=== PATIENT | female | born 1950 | race Hispanic/Latino ===

== ENCOUNTER 2017-01-13 23:47 | Emergency (ER) | payer MEDICARE, OTHER ==
[2017-01-14] MEDS ORDERED: Aspirin 325 MG TAB ONE (01:46)
[2017-01-14 01:51] LABS: Hematocrit 43.5 % (36.0-47.0); Red Blood Cell (RBC) Count 5.62 mill/uL (4.20-5.40); White Blood Cell (WBC) Count 5.8 thou/uL (4.8-10.8)
[2017-01-14 02:05] LABS: #Basophils 0.1 thou/uL (0.0-0.2); #Eosinphils 0.5 thou/uL (0.0-0.7); #Lymphocytes 1.6 thou/uL (1.20-3.40); #Monocytes 0.4 thou/uL (0.11-0.59); #Neutrophils 3.2 thou/uL (1.40-6.50); %Eosinophils 9.4 % (0.0-10.0); %Lymphocytes 27.8 % (21.0-51.0); %Monocytes 6.9 % (0.0-10.0); Mean Platelet Volume 8.6 fL (7.4-10.4)
[2017-01-14 02:12] LABS: Anion Gap 14 mmol/L (10-20); Carbon Dioxide 23 mmol/L (23-31); Chloride 105 mmol/L (98-107); Troponin I Less than 0.010 ng/mL (< 0.028)
[2017-01-14 02:13] LABS: ALT (SGPT) 25 U/L (8-55); AST (SGOT) 30 U/L (5-34); Alkaline Phosphatase 74 U/L (40-150); BUN (Urea Nitrogen) 22 mg/dL (9.8-20.1); Bilirubin, Total 0.9 mg/dL (0.2-1.2); Calc. Creatinine Clearance 0 mL/min (70-130); Calcium 9.2 mg/dL (7.8-10.44); Estimated GFR-MDRD Greater than 90; Globulin 2.8 g/dL (2.4-3.5); Lipase 14 U/L (8-78); Protein, Total 6.8 g/dL (6.0-8.3)
--- NOTE | 2017-01-14 07:51 | RAD ---
CHEST PA AND LATERAL: Date: 01/14/17 HISTORY: 66-year-old female with chest pain. COMPARISON: 10/22/16. FINDINGS: Heart size is normal. The lungs are clear. IMPRESSION: No acute intrathoracic disease. Stable from prior study. POS: [facility]
--- NOTE | 2017-01-14 08:07 | CT ---
PRELIMINARY REPORT/[facility]/EMERGENCY AFTER HOURS PROCEDURE: EXAM: CT Head Without Intravenous Contrast EXAM DATE/TIME: 01/14/2017 2:12 AM CLINICAL HISTORY: 66 years old, female; Pain; Headache; Headache not specified; Patient HX: HOWARD, cp TECHNIQUE: Axial computed tomography images of the head/brain without intravenous contrast. COMPARISON: No relevant prior studies available. FINDINGS: Brain: Decreased attenuation of the supratentorial white matter is likely secondary to chronic micro vascular ischemia. Chronic lacunar infarcts involving the lentiform nuclei. No hemorrhage. Ventricles: Ventricular and subarachnoid spaces are age appropriate. Bones/joints: Unremarkable. No acute fracture. Soft tissues: Unremarkable. Vasculature: Intracranial vascular calcification. Sinuses: Mild paranasal sinus disease. Mastoid air cells: Unremarkable as visualized. No mastoid effusion. IMPRESSION: No acute intracranial abnormality. Thank you for allowing us to participate in the care of your patient. Dictated and Authenticated by: Pepe Walter MD 01/14/2017 2:32 AM Central Time ([place] \T\ [place]) FINAL REPORT HEAD CT WITHOUT CONTRAST: Date: 01/14/17 COMPARISON: 05/02/16. HISTORY: Headache. FINDINGS: I agree with the preliminary report given by [email or web address]. The imaged paranasal sinuses/mastoid air cells ar e well aerated. No displaced calvarial fracture is noted. There is no intracranial hemorrhage, midli ne shift, mass effect, or ventricular enlargement. IMPRESSION: No acute findings. POS: [facility]
--- NOTE | 2017-01-18 18:14 | EKG ---
Test Reason : Blood Pressure : / mmHG Vent. Rate : 078 BPM Atrial Rate : 078 BPM P-R Int : 134 ms QRS Dur : 084 ms QT Int : 388 ms P-R-T Axes : 059 -04 077 degrees QTc Int : 442 ms Normal sinus rhythm Possible Left atrial enlargement Borderline ECG Confirmed by DORCAS MCKEON M.D. ([id number]), video tape editor SACHI MOLINA ([id number]) on 01/18/2017 6:13:45 PM Referred By: Confirmed By:DORCAS MCKEON M.D.
== END 2017-01-14 03:16 | disposition home or self-care (01) ==
LOC: ERS 23:47
DX: H81.399 Other peripheral vertigo, unspecified ear (principal); E11.9 Type 2 diabetes mellitus without complications; I10 Essential (primary) hypertension
CPT/HCPCS: 36415; 70450; 71020; 80053; 82553; 83690; 83735; 84484; 85025; 93005

== ENCOUNTER 2017-04-05 15:21 | Emergency (ER) | payer MEDICARE ==
[2017-04-05] MEDS ORDERED: Ibuprofen 200 MG TAB ONE (16:13)
[2017-04-05] MEDS ORDERED: Ciprofloxacin HCL/Dexameth Otic Drops 7.5 ml Bottle ONE (16:19)
== END 2017-04-05 16:28 | disposition home or self-care (01) ==
LOC: ERS 15:21
DX: H60.8X3 Other otitis externa, bilateral (principal); E11.9 Type 2 diabetes mellitus without complications; I10 Essential (primary) hypertension
CPT/HCPCS: 99283

== ENCOUNTER 2017-05-12 20:57 | Emergency (ER) | payer MEDICARE ==
[~2017-05-12 20:57] MED LIST: ISOVUE-370 76%-LOCM 1 ML ONE
--- NOTE | 2017-05-12 22:05 | RAD ---
RIGHT RIBS THREE VIEWS: History: Right chest injury. FINDINGS: No displaced fracture or pneumothorax are apparent. POS: [facility]
[2017-05-12] MEDS ORDERED: HYDROcodone/Acetaminophen 5/325 mg Tablet ONE (22:45)
[2017-05-12 22:57] LABS: #Basophils 0.2 thou/uL (0.0-0.2); #Eosinphils 0.5 thou/uL (0.0-0.7); #Lymphocytes 2.1 thou/uL (1.20-3.40); #Monocytes 0.4 thou/uL (0.11-0.59); #Neutrophils 3.3 thou/uL (1.40-6.50); %Basophils 2.3 % (0.0-1.0); %Eosinophils 7.9 % (0.0-10.0); %Lymphocytes 32.8 % (21.0-51.0); %Neutrophils 50.9 % (42.0-75.0); Hemoglobin 13.6 g/dL (12.0-16.0); Mean Corpuscular HGB CONC 31.1 g/dL (32.0-36.0); Mean Corpuscular Hemoglobin 23.9 pg (27.0-31.0); Mean Corpuscular Volume 76.6 fl (81.0-99.0); Platelet Count 99 thou/uL (130-400); RBC Distribution Width 12.9 % (11.5-14.5); Red Blood Cell (RBC) Count 5.72 mill/uL (4.20-5.40); White Blood Cell (WBC) Count 6.5 thou/uL (4.8-10.8)
[2017-05-12 23:14] LABS: Bilirubin Negative (Negative); Blood, Urine Negative (Negative); Clarity CLEAR (Clear); Glucose, Urine (Dipstick) >=1000 mg/dL (Negative); Leukocyte Negative (Negative); Nitrite Negative (Negative); Protein, Urine (Dipstick) Negative (Neg-Trace); Specific Gravity, Urine 1.038 (1.002-1.036); pH, Urine 7.5 (5.0-9.0)
[2017-05-12 23:24] LABS: ALT (SGPT) 20 U/L (8-55); AST (SGOT) 29 U/L (5-34); Alkaline Phosphatase 103 U/L (40-150); Anion Gap 14 mmol/L (10-20); BUN (Urea Nitrogen) 20 mg/dL (9.8-20.1); Bilirubin, Total 0.6 mg/dL (0.2-1.2); Calc. Creatinine Clearance 0 mL/min (70-130); Calcium 9.2 mg/dL (7.8-10.44); Carbon Dioxide 23 mmol/L (23-31); Chloride 106 mmol/L (98-107); Estimated GFR-MDRD 85; Globulin 2.8 g/dL (2.4-3.5); Glucose 209 mg/dL (80-115); Lipase 43 U/L (8-78); Potassium 3.9 mmol/L (3.5-5.1); Protein, Total 6.8 g/dL (6.0-8.3); Sodium 139 mmol/L (136-145)
--- NOTE | 2017-05-12 23:55 | CT ---
CT CHEST WITH IV CONTRAST CT ABDOMEN AND PELVIS WITH IV CONTRAST CT THORACIC SPINE NONCONTRAST CT LUMBAR SPINE NONCONTRAST: Date: 05-12-17 Performed on emergency basis at 2341 hours. History: Fall. Chest injury. Back injury. Abdomen injury. FINDINGS: Mild scarring is present at the lung bases. No pneumothorax, pleural fluid, or mediastinal adenopathy . No rib fractures are apparent. Calcified granulomata within the chest and abdomen are consistent with healed granulomatous disease. The liver, spleen, kidneys, adrenal glands, and pancreas have a normal CT appearance. Small hiatal he rnia is apparent. No enlarged lymph nodes or free fluid. Urinary bladder is decompressed. Degenerative changes are present throughout the thoracolumbar spine. Vertebral body heights and align ment are maintained. No acute fracture or dislocation. IMPRESSION: 1. No acute traumatic injury is demonstrated. POS: [facility]
== END 2017-05-13 01:12 | disposition home or self-care (01) ==
LOC: ERS 20:57
DX: S20.211A Contusion of right front wall of thorax, initial encounter (principal); E11.9 Type 2 diabetes mellitus without complications; I10 Essential (primary) hypertension; W19.XXXA Unspecified fall, initial encounter; Y92.512 Supermarket, store or market as the place of occurrence of the external cause
CPT/HCPCS: 36415; 71260; 74177; 80053; 81003; 83690; 85025

== ENCOUNTER 2017-05-18 18:25 | Emergency (ER) | payer MEDICARE | END 2017-05-18 19:48 | disposition home or self-care (01) | LOC: ERS 18:25 | DX: L03.011 Cellulitis of right finger (principal); E11.9 Type 2 diabetes mellitus without complications; I10 Essential (primary) hypertension | CPT/HCPCS: 10060 ==

== ENCOUNTER 2017-06-15 17:28 | Emergency (ER) | payer MEDICARE ==
[2017-06-15] MEDS ORDERED: Proparacaine 0.5% Opth 15 ML BOT ONE (19:44)
--- NOTE | 2017-06-15 20:08 | CT ---
CT OF THE BRAIN WITHOUT CONTRAST: Indication: Acute onset visual changes with blurry vision. Patient is a diabetic and ran out of [facility]. Comparison: 01-14-17 FINDINGS: No acute infarct, hemorrhage, or hydrocephalus is present. Small lacunar infarcts involving the globu s pallidus bilaterally are stable. No acute infarct, hemorrhage, or hydrocephalus is present. Skull a nd extracranial soft tissues are unremarkable. IMPRESSION: No acute intracranial abnormality. Examination is not appreciably changed from the prior study,. POS: [facility]
[2017-06-15 20:47] LABS: Anion Gap 12 mmol/L (10-20); BUN (Urea Nitrogen) 17 mg/dL (9.8-20.1); Calc. Creatinine Clearance 0 mL/min (70-130); Calcium 9.4 mg/dL (7.8-10.44); Carbon Dioxide 24 mmol/L (23-31); Chloride 106 mmol/L (98-107); Estimated GFR-MDRD 76; Glucose 260 mg/dL (80-115); Potassium 3.9 mmol/L (3.5-5.1); Sodium 138 mmol/L (136-145)
== END 2017-06-15 20:58 | disposition home or self-care (01) ==
LOC: ERS 17:28
DX: E11.65 Type 2 diabetes mellitus with hyperglycemia (principal); I10 Essential (primary) hypertension; Z79.84 Long term (current) use of oral hypoglycemic drugs
CPT/HCPCS: 36415; 36416; 70450; 80048

== ENCOUNTER 2018-02-28 23:08 | Emergency (ER) | payer MEDICARE ==
[2018-02-28] MEDS ORDERED: Acetaminophen 500 MG TAB ONE (23:35)
--- NOTE | 2018-02-28 23:47 | RAD ---
LEFT KNEE: 02/28/18 Four views. HISTORY: Injury. FINDINGS: There are mild to moderate degenerative changes at the left knee. There is chondrocalcinosis and mild spurring. No evidence of joint effusion. No fracture or acute abnormality. IMPRESSION: Mild to moderate degenerative changes of the left knee. POS: [facility]
== END 2018-02-28 23:56 | disposition home or self-care (01) ==
LOC: ERS 23:08
DX: S80.02XA Contusion of left knee, initial encounter (principal); E11.9 Type 2 diabetes mellitus without complications; I10 Essential (primary) hypertension; W01.198A Fall on same level from slipping, tripping and stumbling with subsequent striking against other object, initial encounter

== ENCOUNTER 2019-09-05 00:52 | Emergency (ER) | payer MEDICARE, SELFPAY ==
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
== END 2019-09-05 03:08 | disposition home or self-care (01) ==
LOC: ERS 00:52
DX: S00.83XA Contusion of other part of head, initial encounter (principal); S20.219A Contusion of unspecified front wall of thorax, initial encounter; K02.9 Dental caries, unspecified; K03.81 Cracked tooth; E11.9 Type 2 diabetes mellitus without complications; I10 Essential (primary) hypertension; Y04.8XXA Assault by other bodily force, initial encounter
CPT/HCPCS: 71045

== ENCOUNTER 2020-07-06 08:22 | Observation (INO) | payer MEDICARE ==
[2020-07-06 09:41] LABS: #Eosinphils 0.6 thou/uL (0.0-0.7); #Lymphocytes 1.2 thou/uL (1.20-3.40); #Monocytes 0.3 thou/uL (0.11-0.59); #Neutrophils 3.3 thou/uL (1.40-6.50); %Basophils 0.1 % (0.0-1.0); %Eosinophils 11.5 % (0.0-10.0); %Lymphocytes 22.5 % (21.0-51.0); %Monocytes 5.2 % (0.0-10.0); %Neutrophils 60.8 % (42.0-75.0); Hemoglobin 12.7 g/dL (12.0-16.0); Mean Corpuscular HGB CONC 31.3 g/dL (32.0-36.0); Mean Corpuscular Hemoglobin 24.1 pg (27.0-31.0); Mean Platelet Volume 12.9 fL (7.4-10.4); Platelet Count 82 thou/uL (130-400); RBC Distribution Width 12.7 % (11.5-14.5); Red Blood Cell (RBC) Count 5.28 mill/uL (4.20-5.40); White Blood Cell (WBC) Count 5.4 thou/uL (4.8-10.8)
[2020-07-06 09:50] LABS: ALT (SGPT) 14 U/L (8-55); AST (SGOT) 21 U/L (5-34); Albumin 3.8 g/dL (3.4-4.8); Alkaline Phosphatase 87 U/L (40-110); Anion Gap 12 mmol/L (10-20); BUN (Urea Nitrogen) 15 mg/dL (9.8-20.1); Bilirubin, Total 0.5 mg/dL (0.2-1.2); Calc. Creatinine Clearance 0 mL/min (70-130); Calcium 8.7 mg/dL (7.8-10.44); Carbon Dioxide 23 mmol/L (23-31); Chloride 107 mmol/L (98-107); Globulin 2.6 g/dL (2.4-3.5); Glucose 271 mg/dL (80-115); Potassium 3.8 mmol/L (3.5-5.1); Protein, Total 6.4 g/dL (5.8-8.1); Sodium 138 mmol/L (136-145)
[2020-07-06] MEDS ORDERED: Labetalol HCl 100 MG/20 ML VIAL ONE (10:16)
[2020-07-06] MEDS ORDERED: Bisacodyl 10 MG SUPP PR PRN (10:22)
[2020-07-06] MEDS ORDERED: Acetaminophen 325 MG TAB PO PRN (10:22)
[2020-07-06] MEDS ORDERED: HumaLOG 300 UNITS/3 ML VIAL SC PRN ×2 (10:22)
[2020-07-06] MEDS ORDERED: Ondansetron PF 4 MG/2 ML Vial IVP PRN (10:22)
[2020-07-06] MEDS ORDERED: Sodium Chloride 0.9% 1,000 ML IV SCH (10:22)
[2020-07-06] MEDS ORDERED: Guaifenesin DM 100-10/5 ML UDCUP PO PRN (10:22)
[2020-07-06] MEDS ORDERED: Dextrose 50% Abboject 50 ML SYRINGE SLOW IVP PRN (10:22)
[2020-07-06] MEDS ORDERED: Calcium Carbonate 500 MG ChewTAB PO PRN (10:22)
[2020-07-06] MEDS ORDERED: Dextrose 5% in Water 1,000 ML IV PRN (10:22)
[2020-07-06] MEDS ORDERED: Nitroglycerin 0.4 MG TAB (25 Tab Bottle) SL PRN (10:22)
[2020-07-06] MEDS ORDERED: Senokot S 8.6-50 MG TAB PO PRN (10:22)
[2020-07-06 10:50] LABS: Hemoglobin A1c 9.2 % (4.0-6.0)
[2020-07-06 11:09] LABS: Troponin I Less than 0.010 ng/mL (< 0.028)
[2020-07-06] MEDS ORDERED: Doxycycline 100 MG CAP PO SCH (11:15)
[2020-07-06 11:33] LABS: Bacteria/HPF None Seen HPF (None Seen); Bilirubin Negative (Negative); Blood, Urine Negative (Negative); Clarity Clear (Clear); Glucose, Urine (Dipstick) Greater than 1000 mg/dL (Negative); Ketone, Urine Negative (Negative); Leukocyte 250 Leu/uL (Negative); Nitrite Negative (Negative); Protein, Urine (Dipstick) Negative (Neg-Trace); RBC/HPF 0-3 HPF (0-3); Specific Gravity, Urine 1.024 (1.002-1.036); Urobilinogen Normal mg/dL (Less than 2); WBC/HPF 0-3 HPF (0-3)
[2020-07-06 14:04] LABS: Troponin I Less than 0.010 ng/mL (< 0.028)
[2020-07-06 14:51] VITALS: BMI 22.2
[2020-07-06] MEDS: Aspirin Chewable 81 MG TAB PO SCH ×2 (16:13→16:34)
[2020-07-06] MEDS ORDERED: Simvastatin 10 MG TAB PO SCH (21:00)
[2020-07-06] MEDS: Metoprolol Tartrate 25 MG TAB PO SCH (21:47)
[2020-07-06] MEDS: Famotidine 20 MG TAB PO SCH (21:47)
[2020-07-06] MEDS: Doxycycline 100 MG CAP PO SCH (21:47)
[2020-07-06 21:59] LABS: SARS-CoV-2 PCR by NAA Not Detected (NotDetected)
[2020-07-07 05:32] LABS: #Eosinphils 0.8 thou/uL (0.0-0.7); #Lymphocytes 1.7 thou/uL (1.20-3.40); #Monocytes 0.3 thou/uL (0.11-0.59); #Neutrophils 2.8 thou/uL (1.40-6.50); %Basophils 0.5 % (0.0-1.0); %Eosinophils 13.8 % (0.0-10.0); %Lymphocytes 29.9 % (21.0-51.0); %Monocytes 5.3 % (0.0-10.0); %Neutrophils 50.5 % (42.0-75.0); Hemoglobin 11.7 g/dL (12.0-16.0); Mean Corpuscular HGB CONC 30.8 g/dL (32.0-36.0); Mean Corpuscular Hemoglobin 23.7 pg (27.0-31.0); Mean Corpuscular Volume 76.8 fL (78.0-98.0); Mean Platelet Volume 11.7 fL (7.4-10.4); Platelet Count 88 thou/uL (130-400); RBC Distribution Width 12.5 % (11.5-14.5); Red Blood Cell (RBC) Count 4.94 mill/uL (4.20-5.40); White Blood Cell (WBC) Count 5.6 thou/uL (4.8-10.8)
[2020-07-07 05:43] LABS: Anion Gap 11 mmol/L (10-20); BUN (Urea Nitrogen) 16 mg/dL (9.8-20.1); Calc. Creatinine Clearance 69 mL/min (70-130); Calcium 8.4 mg/dL (7.8-10.44); Carbon Dioxide 23 mmol/L (23-31); Cardiac Risk 3.5 (Less than 4.5); Chloride 109 mmol/L (98-107); Cholesterol 163 mg/dl (< 200 Desired); Glucose 160 mg/dL (80-115); HDL Cholesterol 47 mg/dL (>60 Neg Risk); LDL Cholesterol, Calculated 97 mg/dL; Potassium 3.6 mmol/L (3.5-5.1); Sodium 139 mmol/L (136-145); Triglycerides 94 mg/dL (Less than 150)
[2020-07-07 08:03] VITALS: TEMP 98
[2020-07-07] MEDS ORDERED: Enoxaparin Sodium 40 MG/0.4 ML SYRINGE SC SCH (09:00)
[2020-07-07] MEDS ORDERED: Aspirin Chewable 81 MG TAB PO SCH (09:00)
[2020-07-07] MEDS ORDERED: Lisinopril 10 MG TAB PO SCH (09:00)
[2020-07-07] MEDS: Doxycycline 100 MG CAP PO SCH (09:25)
[2020-07-07] MEDS: Metoprolol Tartrate 25 MG TAB PO SCH (09:26)
[2020-07-07] MEDS: Famotidine 20 MG TAB PO SCH (09:34)
[2020-07-07 12:01] VITALS: BP 147/60
== END 2020-07-07 14:00 | disposition home or self-care (01) ==
LOC: ERS 08:22 → ERHOLD 10:18 → 2SE 14:26
PROVIDERS: ADMIT Internal Medicine; ATTEND Internal Medicine
DX: G45.9 Transient cerebral ischemic attack, unspecified (principal); I10 Essential (primary) hypertension; E11.9 Type 2 diabetes mellitus without complications; E78.5 Hyperlipidemia, unspecified; Z20.822 Contact with and (suspected) exposure to COVID-19
CPT/HCPCS: 70450; 70551; 71045; 80048; 80053; 80061; 82962 ×2; 83036; 84484 ×2; 85025 ×2; 93005; 93306; 94640 ×3; 96374; 97116; 97139 ×3; 99285; U0003; U0005; 36415; 36416; 81003; 81015; 87635; G0378; J1815; J7620

== ENCOUNTER 2020-08-17 10:29 | Emergency (ER) | payer MEDICARE | END 2020-08-17 11:35 | disposition home or self-care (01) | LOC: ERS 10:29 | DX: J18.9 Pneumonia, unspecified organism (principal); E11.9 Type 2 diabetes mellitus without complications; I10 Essential (primary) hypertension | CPT/HCPCS: 71045 ==

== ENCOUNTER 2020-08-21 11:25 | Emergency (ER) | payer MEDICARE ==
[2020-08-21 14:05] LABS: #Eosinphils 0.2 thou/uL (0.0-0.7); #Lymphocytes 2.2 thou/uL (1.20-3.40); #Monocytes 0.4 thou/uL (0.11-0.59); #Neutrophils 3.6 thou/uL (1.40-6.50); %Basophils 0.7 % (0.0-1.0); %Eosinophils 3.4 % (0.0-10.0); %Lymphocytes 34.2 % (21.0-51.0); %Monocytes 6.1 % (0.0-10.0); %Neutrophils 55.6 % (42.0-75.0); Hemoglobin 13.2 g/dL (12.0-16.0); Mean Corpuscular HGB CONC 32.1 g/dL (32.0-36.0); Mean Corpuscular Hemoglobin 24.6 pg (27.0-31.0); Mean Corpuscular Volume 76.7 fL (78.0-98.0); Mean Platelet Volume 12.7 fL (7.4-10.4); Platelet Count 93 thou/uL (130-400); RBC Distribution Width 12.9 % (11.5-14.5); Red Blood Cell (RBC) Count 5.35 mill/uL (4.20-5.40); White Blood Cell (WBC) Count 6.5 thou/uL (4.8-10.8)
[2020-08-21 14:13] LABS: Bilirubin Negative (Negative); Blood, Urine Trace (Negative); Glucose, Urine (Dipstick) >=1000 mg/dL (Negative); Ketone, Urine Negative (Negative); Leukocyte Small (Negative); Nitrite Negative (Negative); Protein, Urine (Dipstick) Negative (Neg-Trace); Specific Gravity, Urine 1.025 (1.005-1.030); Urobilinogen 0.2 mg/dL (Less than 2)
[2020-08-21 14:17] LABS: ALT (SGPT) 27 U/L (8-55); AST (SGOT) 33 U/L (5-34); Albumin 4.1 g/dL (3.4-4.8); Alkaline Phosphatase 85 U/L (40-110); Anion Gap 13 mmol/L (10-20); BUN (Urea Nitrogen) 21 mg/dL (9.8-20.1); Bilirubin, Total 0.9 mg/dL (0.2-1.2); Calc. Creatinine Clearance 0 mL/min (70-130); Calcium 9.1 mg/dL (7.8-10.44); Carbon Dioxide 25 mmol/L (23-31); Chloride 104 mmol/L (98-107); Globulin 2.7 g/dL (2.4-3.5); Glucose 188 mg/dL (80-115); Lipase 21 U/L (8-78); Potassium 3.5 mmol/L (3.5-5.1); Protein, Total 6.8 g/dL (5.8-8.1); Sodium 138 mmol/L (136-145)
[2020-08-21 14:18] LABS: Hypochromia SLIGHT = 6-15 cells (100X) (0-5/hpf); Large Platelets SLIGHT; MDiff Complete? YES; Microcytosis SLIGHT = 6-15 cells (100X) (0-5/hpf); Platelet Morphology Comment Appears Decreased; Polychromasia SLIGHT = 2-3 cells (100X) (0-2/hpf); Target Cells SLIGHT = 2-5 cells (100X) (0-1/hpf); Tear Drops SLIGHT = 2-5 cells (100X) (0-1/hpf)
[2020-08-21 14:20] LABS: Bacteria/HPF None Seen HPF (None Seen); WBC/HPF 21-50 HPF (0-3)
[2020-08-21 14:25] LABS: Clarity Cloudy (Clear)
== END 2020-08-21 15:18 | disposition home or self-care (01) ==
LOC: ERS 11:25
DX: N39.0 Urinary tract infection, site not specified (principal); R42 Dizziness and giddiness; H91.92 Unspecified hearing loss, left ear; E11.9 Type 2 diabetes mellitus without complications; I10 Essential (primary) hypertension
CPT/HCPCS: 36415; 70450; 71045; 80053; 81003; 81015; 83605; 83690; 84484; 85025; 87077; 87086; 93005

== ENCOUNTER 2020-12-01 23:48 | Emergency (ER) | payer MEDICARE ==
[2020-12-02 10:27] LABS: ALT (SGPT) 22 U/L (8-55); AST (SGOT) 27 U/L (5-34); Alkaline Phosphatase 93 U/L (40-110); Anion Gap 12 mmol/L (10-20); BUN (Urea Nitrogen) 33 mg/dL (9.8-20.1); Bilirubin, Total 0.4 mg/dL (0.2-1.2); Calc. Creatinine Clearance 0 mL/min (70-130); Calcium 9.4 mg/dL (7.8-10.44); Carbon Dioxide 25 mmol/L (23-31); Chloride 108 mmol/L (98-107); Globulin 2.7 g/dL (2.4-3.5); Protein, Total 6.7 g/dL (5.8-8.1); Sodium 141 mmol/L (136-145)
[2020-12-02 10:38] LABS: Hemoglobin 13.3 g/dL (12.0-16.0); Mean Corpuscular HGB CONC 32.2 g/dL (32.0-36.0); Mean Corpuscular Hemoglobin 24.5 pg (27.0-31.0); Mean Corpuscular Volume 76.3 fL (78.0-98.0); RBC Distribution Width 12.3 % (11.5-14.5); Red Blood Cell (RBC) Count 5.42 mill/uL (4.20-5.40); White Blood Cell (WBC) Count 6.9 thou/uL (4.8-10.8)
[2020-12-02 10:39] LABS: Mean Platelet Volume 12.6 fL (7.4-10.4)
[2020-12-02 10:46] LABS: %Neutrophils 47.5 % (42.0-75.0); Platelet Count 97 thou/uL (130-400)
[2020-12-02 10:47] LABS: #Neutrophils 3.3 thou/uL (1.40-6.50); %Basophils 2.8 % (0.0-1.0); %Eosinophils 14.1 % (0.0-10.0); %Lymphocytes 28.5 % (21.0-51.0)
[2020-12-02 10:48] LABS: #Basophils 0.2 thou/uL (0.0-0.2); #Monocytes 0.5 thou/uL (0.11-0.59)
[2020-12-04 11:23] LABS: Glucose 205 mg/dL (80-115)
== END 2020-12-02 06:45 | disposition home or self-care (01) ==
LOC: ERS 23:48
DX: R53.1 Weakness (principal); R42 Dizziness and giddiness
CPT/HCPCS: 70450; 74018; 80053; 83880; 84484; 85025

== ENCOUNTER 2021-03-28 18:17 | Emergency (ER) | payer MEDICARE ==
[2021-03-29 13:39] LABS: SARS-CoV-2 PCR by NAA Not Detected (NotDetected)
== END 2021-03-28 19:18 | disposition home or self-care (01) ==
LOC: ERS 18:17
DX: R05.9 Cough, unspecified (principal); R51.9 Headache, unspecified; Z20.822 Contact with and (suspected) exposure to COVID-19; I10 Essential (primary) hypertension; E11.9 Type 2 diabetes mellitus without complications; Z79.84 Long term (current) use of oral hypoglycemic drugs
CPT/HCPCS: 99284; U0003; U0005

== ENCOUNTER 2021-04-07 10:58 | Emergency (ER) | payer MEDICARE ==
[2021-04-07 11:55] LABS: ALT (SGPT) 17 U/L (8-55); AST (SGOT) 26 U/L (5-34); Alkaline Phosphatase 68 U/L (40-110); Anion Gap 16 mmol/L (10-20); BUN (Urea Nitrogen) 22 mg/dL (9.8-20.1); Calc. Creatinine Clearance 0 mL/min (70-130); Carbon Dioxide 22 mmol/L (23-31); Chloride 107 mmol/L (98-107); Globulin 2.6 g/dL (2.4-3.5); Glucose 128 mg/dL (80-115); Potassium 3.7 mmol/L (3.5-5.1); Protein, Total 6.6 g/dL (5.8-8.1); Sodium 141 mmol/L (136-145)
[2021-04-07 12:05] LABS: #Basophils 0.1 thou/uL (0.0-0.2); #Eosinphils 0.4 thou/uL (0.0-0.7); #Lymphocytes 1.1 thou/uL (1.20-3.40); #Monocytes 0.4 thou/uL (0.11-0.59); #Neutrophils 3.3 thou/uL (1.40-6.50); %Basophils 2.1 % (0.0-1.0); %Eosinophils 7.5 % (0.0-10.0); %Lymphocytes 20.2 % (21.0-51.0); %Monocytes 7.4 % (0.0-10.0); %Neutrophils 62.8 % (42.0-75.0); Hemoglobin 12.8 g/dL (12.0-16.0); Mean Corpuscular HGB CONC 32.1 g/dL (32.0-36.0); Mean Corpuscular Hemoglobin 24.6 pg (27.0-31.0); Mean Corpuscular Volume 76.8 fL (78.0-98.0); RBC Distribution Width 12.5 % (11.5-14.5); Red Blood Cell (RBC) Count 5.19 mill/uL (4.20-5.40); White Blood Cell (WBC) Count 5.3 thou/uL (4.8-10.8)
[2021-04-07 12:08] LABS: Hypochromia SLIGHT = 6-15 cells (100X) (0-5/hpf); MDiff Complete? YES; Mean Platelet Volume 12.6 fL (7.4-10.4); Microcytosis SLIGHT = 6-15 cells (100X) (0-5/hpf); Ovalocytes SLIGHT = 2-5 cells (100X) (0-1/hpf); Platelet Count 74 thou/uL (130-400); Platelet Morphology Comment Appears Decreased; Target Cells SLIGHT = 2-5 cells (100X) (0-1/hpf)
[2021-04-07 12:20] LABS: Bilirubin Negative (Negative); Blood, Urine Negative (Negative); Glucose, Urine (Dipstick) >=1000 mg/dL (Negative); Ketone, Urine 15 mg/dL (Negative); Leukocyte Negative (Negative); Nitrite Negative (Negative); Protein, Urine (Dipstick) Negative (Neg-Trace); Urobilinogen 0.2 mg/dL (Less than 2); pH, Urine 5.5 (5.0-9.0)
[2021-04-07 12:31] LABS: Clarity Hazy (Clear)
[2021-04-07 12:32] LABS: Specific Gravity, Urine 1.027 (1.002-1.036)
[2021-04-07 13:05] LABS: RBC/HPF None Seen HPF (0-3); Squamous Epithelial 0-3 HPF (0-3); WBC/HPF 0-3 HPF (0-3)
[2021-04-07] MEDS ORDERED: Morphine 4 MG/ML VIAL ONE (13:33)
== END 2021-04-07 16:10 | disposition home or self-care (01) ==
LOC: ERS 10:58
DX: K46.9 Unspecified abdominal hernia without obstruction or gangrene (principal); M54.50 Low back pain, unspecified; R07.9 Chest pain, unspecified; I10 Essential (primary) hypertension; E11.9 Type 2 diabetes mellitus without complications
CPT/HCPCS: 36415; 71045; 72131; 80053; 81003; 84484; 85025; 93005; 96372; J2270

== ENCOUNTER 2021-04-21 22:42 | Inpatient (IN) | payer MEDICARE ==
[2021-04-21] MEDS ORDERED: Aspirin Chewable 81 MG TAB ONE (23:05)
[2021-04-21 23:12] LABS: #Eosinphils 0.3 thou/uL (0.0-0.7); #Lymphocytes 1.2 thou/uL (1.20-3.40); #Monocytes 0.4 thou/uL (0.11-0.59); #Neutrophils 4.3 thou/uL (1.40-6.50); %Basophils 0.5 % (0.0-1.0); %Eosinophils 5.5 % (0.0-10.0); %Lymphocytes 18.7 % (21.0-51.0); %Monocytes 5.9 % (0.0-10.0); %Neutrophils 69.4 % (42.0-75.0); Hemoglobin 13.3 g/dL (12.0-16.0); Mean Corpuscular HGB CONC 31.8 g/dL (32.0-36.0); Mean Corpuscular Volume 75.6 fL (78.0-98.0); Mean Platelet Volume 11.8 fL (7.4-10.4); Platelet Count 103 thou/uL (130-400); RBC Distribution Width 12.9 % (11.5-14.5); Red Blood Cell (RBC) Count 5.55 mill/uL (4.20-5.40); White Blood Cell (WBC) Count 6.2 thou/uL (4.8-10.8)
[2021-04-21 23:32] LABS: ALT (SGPT) 27 U/L (8-55); AST (SGOT) 35 U/L (5-34); Albumin 4.4 g/dL (3.4-4.8); Alkaline Phosphatase 90 U/L (40-110); Anion Gap 15 mmol/L (10-20); BUN (Urea Nitrogen) 18 mg/dL (9.8-20.1); Bilirubin, Total 0.7 mg/dL (0.2-1.2); Calc. Creatinine Clearance 0 mL/min (70-130); Calcium 9.4 mg/dL (7.8-10.44); Carbon Dioxide 22 mmol/L (23-31); Chloride 106 mmol/L (98-107); Globulin 3.1 g/dL (2.4-3.5); Glucose 194 mg/dL (80-115); Potassium 4.1 mmol/L (3.5-5.1); Protein, Total 7.5 g/dL (5.8-8.1); Sodium 139 mmol/L (136-145)
[2021-04-22] MEDS ORDERED: Ondansetron PF 4 MG/2 ML Vial IVP PRN (02:11)
[2021-04-22] MEDS ORDERED: Nitroglycerin 0.4 MG TAB (25 Tab Bottle) SL PRN (02:11)
[2021-04-22] MEDS ORDERED: Acetaminophen 325 MG TAB PO PRN (02:11)
[2021-04-22 02:38] LABS: Troponin I Less than 0.010 ng/mL (< 0.028)
[2021-04-22 04:56] LABS: #Basophils 0.1 thou/uL (0.0-0.2); #Eosinphils 0.5 thou/uL (0.0-0.7); #Lymphocytes 1.4 thou/uL (1.20-3.40); #Monocytes 0.4 thou/uL (0.11-0.59); #Neutrophils 3.1 thou/uL (1.40-6.50); %Basophils 1.1 % (0.0-1.0); %Eosinophils 8.9 % (0.0-10.0); %Lymphocytes 25.9 % (21.0-51.0); %Monocytes 7.5 % (0.0-10.0); %Neutrophils 56.5 % (42.0-75.0); Hemoglobin 12.1 g/dL (12.0-16.0); Mean Corpuscular HGB CONC 31.6 g/dL (32.0-36.0); Mean Corpuscular Hemoglobin 24.3 pg (27.0-31.0); Mean Corpuscular Volume 76.9 fL (78.0-98.0); Mean Platelet Volume 12.2 fL (7.4-10.4); Platelet Count 95 thou/uL (130-400); RBC Distribution Width 12.8 % (11.5-14.5); Red Blood Cell (RBC) Count 4.96 mill/uL (4.20-5.40); White Blood Cell (WBC) Count 5.5 thou/uL (4.8-10.8)
[2021-04-22 05:19] LABS: Hemoglobin A1c 10.2 % (4.0-6.0)
[2021-04-22 05:23] LABS: Anion Gap 13 mmol/L (10-20); BUN (Urea Nitrogen) 20 mg/dL (9.8-20.1); Calc. Creatinine Clearance 0 mL/min (70-130); Calcium 9.1 mg/dL (7.8-10.44); Carbon Dioxide 22 mmol/L (23-31); Chloride 107 mmol/L (98-107); Cholesterol 205 mg/dl (< 200 Desired); Glucose 272 mg/dL (80-115); HDL Cholesterol 51 mg/dL (>60 Neg Risk); LDL Cholesterol, Calculated 132 mg/dL; Potassium 3.9 mmol/L (3.5-5.1); Sodium 138 mmol/L (136-145); Triglycerides 112 mg/dL (Less than 150)
[2021-04-22 05:26] LABS: Troponin I Less than 0.010 ng/mL (< 0.028)
[2021-04-22] MEDS ORDERED: HumaLOG 300 UNITS/3 ML VIAL SC PRN (05:37)
[2021-04-22] MEDS ORDERED: Dextrose 50% Abboject 50 ML SYRINGE SLOW IVP PRN (05:37)
[2021-04-22] MEDS ORDERED: Dextrose 5% in Water 1,000 ML IV PRN (05:37)
[2021-04-22] MEDS ORDERED: Aspirin Chewable 81 MG TAB ONE (08:27)
[2021-04-22] MEDS: Aspirin Chewable 81 MG TAB PO SCH (08:37)
[2021-04-22] MEDS ORDERED: Enoxaparin Sodium 40 MG/0.4 ML SYRINGE SC SCH (09:00)
[2021-04-22] MEDS ORDERED: hydrALAZINE 20 MG/ML VIAL SLOW IVP PRN (09:59)
[2021-04-22] MEDS: Lantus 1000 UNITS/10 ML VIAL SC SCH (10:11)
[2021-04-22] MEDS: Carvedilol 3.125 MG TAB PO SCH ×2 (10:11→17:21)
[2021-04-22 10:12] VITALS: BMI 26.3
[2021-04-22 15:29] LABS: SARS-CoV-2 PCR by NAA Not Detected (NotDetected)
[2021-04-22] MEDS: HumaLOG 300 UNITS/3 ML VIAL SC PRN (17:26)
[2021-04-22] MEDS: Atorvastatin Calcium 40 MG TAB PO SCH (20:12)
[2021-04-23 05:14] LABS: #Basophils 0.1 thou/uL (0.0-0.2); #Eosinphils 0.8 thou/uL (0.0-0.7); #Lymphocytes 1.6 thou/uL (1.20-3.40); #Monocytes 0.5 thou/uL (0.11-0.59); %Basophils 1.1 % (0.0-1.0); %Eosinophils 13.4 % (0.0-10.0); %Lymphocytes 27.1 % (21.0-51.0); %Monocytes 8.4 % (0.0-10.0); %Neutrophils 49.9 % (42.0-75.0); Hemoglobin 12.7 g/dL (12.0-16.0); Mean Corpuscular HGB CONC 31.7 g/dL (32.0-36.0); Mean Corpuscular Hemoglobin 24.2 pg (27.0-31.0); Mean Corpuscular Volume 76.2 fL (78.0-98.0); Mean Platelet Volume 11.8 fL (7.4-10.4); Platelet Count 101 thou/uL (130-400); RBC Distribution Width 12.8 % (11.5-14.5); Red Blood Cell (RBC) Count 5.23 mill/uL (4.20-5.40); White Blood Cell (WBC) Count 5.9 thou/uL (4.8-10.8)
[2021-04-23 05:32] LABS: Anion Gap 11 mmol/L (10-20); BUN (Urea Nitrogen) 26 mg/dL (9.8-20.1); Calc. Creatinine Clearance 73 mL/min (70-130); Calcium 9.4 mg/dL (7.8-10.44); Carbon Dioxide 24 mmol/L (23-31); Chloride 107 mmol/L (98-107); Glucose 189 mg/dL (80-115); Potassium 3.9 mmol/L (3.5-5.1); Sodium 138 mmol/L (136-145)
[2021-04-23] MEDS: HumaLOG 300 UNITS/3 ML VIAL SC PRN ×2 (05:54→18:08)
[2021-04-23] MEDS ORDERED: ADENOSINE 60 MG/20 ML VIAL ONE (08:43)
[2021-04-23] MEDS ORDERED: Carvedilol 3.125 MG TAB PO SCH (11:00)
[2021-04-23] MEDS: Carvedilol 3.125 MG TAB PO SCH ×2 (11:13→18:08)
[2021-04-23] MEDS: Aspirin Chewable 81 MG TAB PO SCH (11:15)
[2021-04-23 12:35] LABS: Amphetamine Not Detected (NotDetected); Barbiturates Screen Not Detected (NotDetected); Benzodiazepine Screen Not Detected (NotDetected); Cocaine Metabolite Screen Not Detected (NotDetected); Methadone Not Detected (NotDetected); Methamphetamine Not Detected (NotDetected); Opiate Screen Not Detected (NotDetected); Oxycodone Screen Not Detected (NotDetected); Phencyclidine (PCP) Not Detected (NotDetected); THC/Cannabinoid Screen Not Detected (NotDetected); Tricyclic Screen Not Detected (NotDetected)
[2021-04-23] MEDS: Lantus 1000 UNITS/10 ML VIAL SC SCH (13:28)
[2021-04-23] MEDS ORDERED: hydrALAZINE 25 MG TAB PO PRN (13:55)
[2021-04-23] MEDS ORDERED: hydrOXYzine 25 MG TAB PO PRN (14:05)
[2021-04-23] MEDS: Gabapentin 100 MG CAP PO SCH (20:16)
[2021-04-23] MEDS: Atorvastatin Calcium 40 MG TAB PO SCH (20:16)
[2021-04-24 05:17] LABS: #Eosinphils 0.8 thou/uL (0.0-0.7); #Monocytes 0.5 thou/uL (0.11-0.59); #Neutrophils 2.2 thou/uL (1.40-6.50); %Basophils 0.3 % (0.0-1.0); %Eosinophils 14.6 % (0.0-10.0); %Lymphocytes 35.8 % (21.0-51.0); %Monocytes 8.4 % (0.0-10.0); %Neutrophils 40.8 % (42.0-75.0); Hemoglobin 12.2 g/dL (12.0-16.0); Mean Corpuscular HGB CONC 32.7 g/dL (32.0-36.0); Mean Corpuscular Hemoglobin 24.9 pg (27.0-31.0); Mean Corpuscular Volume 76.1 fL (78.0-98.0); Mean Platelet Volume 11.9 fL (7.4-10.4); Platelet Count 94 thou/uL (130-400); RBC Distribution Width 12.7 % (11.5-14.5); Red Blood Cell (RBC) Count 4.89 mill/uL (4.20-5.40); White Blood Cell (WBC) Count 5.5 thou/uL (4.8-10.8)
[2021-04-24 05:37] LABS: Anion Gap 13 mmol/L (10-20); BUN (Urea Nitrogen) 24 mg/dL (9.8-20.1); Calc. Creatinine Clearance 65 mL/min (70-130); Carbon Dioxide 24 mmol/L (23-31); Chloride 105 mmol/L (98-107); Glucose 182 mg/dL (80-115); Potassium 3.7 mmol/L (3.5-5.1); Sodium 138 mmol/L (136-145)
[2021-04-24] MEDS: HumaLOG 300 UNITS/3 ML VIAL SC PRN ×3 (06:17→16:51)
[2021-04-24] MEDS: Lantus 1000 UNITS/10 ML VIAL SC SCH (08:55)
[2021-04-24] MEDS: Carvedilol 3.125 MG TAB PO SCH ×2 (08:55→16:51)
[2021-04-24] MEDS: Aspirin Chewable 81 MG TAB PO SCH (08:55)
[2021-04-24] MEDS: metFORMIN 850 MG TAB PO SCH (16:51)
[2021-04-24] MEDS: Gabapentin 100 MG CAP PO SCH (20:43)
[2021-04-24] MEDS: Atorvastatin Calcium 40 MG TAB PO SCH (20:44)
[2021-04-25] MEDS: Aspirin Chewable 81 MG TAB PO SCH (09:19)
[2021-04-25] MEDS: Carvedilol 3.125 MG TAB PO SCH (09:20)
[2021-04-25] MEDS: metFORMIN 850 MG TAB PO SCH (09:20)
[2021-04-25] MEDS: HumaLOG 300 UNITS/3 ML VIAL SC PRN (12:40)
[2021-04-25 12:54] VITALS: BP 164/77; TEMP 97.2
== END 2021-04-25 13:44 | disposition home or self-care (01) | DRG 313 ==
LOC: ERS 22:42 → ERHOLD 04-22 00:37 → 2NO 04-22 09:07 → OBSVTOIN 04-24 16:34
PROVIDERS: ADMIT Internal Medicine; ATTEND Internal Medicine
DX: R07.89 Other chest pain (principal); Z20.822 Contact with and (suspected) exposure to COVID-19; I25.10 Atherosclerotic heart disease of native coronary artery without angina pectoris; I10 Essential (primary) hypertension; E78.5 Hyperlipidemia, unspecified; D69.6 Thrombocytopenia, unspecified; E11.65 Type 2 diabetes mellitus with hyperglycemia; R42 Dizziness and giddiness; Z28.21 Immunization not carried out because of patient refusal; Z79.899 Other long term (current) drug therapy; Z79.82 Long term (current) use of aspirin; Z98.51 Tubal ligation status; Z82.49 Family history of ischemic heart disease and other diseases of the circulatory system; Z91.14 Patient's other noncompliance with medication regimen
CPT/HCPCS: 36415; 36416; 71045; 78452; 80048; 80053; 80061; 80306; 83036; 83690; 83880; 84484; 85025; 85379; 93005; 93017; 96374; 96375; A9500; G0378; J0153; J0360; J1815; J2405; U0003; U0005

== ENCOUNTER 2021-05-07 16:01 | Emergency (ER) | payer MEDICARE ==
[2021-05-07 16:51] LABS: #Basophils 0.1 thou/uL (0.0-0.2); #Eosinphils 0.8 thou/uL (0.0-0.7); #Lymphocytes 1.6 thou/uL (1.20-3.40); #Monocytes 0.5 thou/uL (0.11-0.59); #Neutrophils 3.2 thou/uL (1.40-6.50); %Eosinophils 12.8 % (0.0-10.0); %Lymphocytes 26.7 % (21.0-51.0); %Monocytes 7.5 % (0.0-10.0); %Neutrophils 51.9 % (42.0-75.0); Hemoglobin 12.1 g/dL (12.0-16.0); Mean Corpuscular HGB CONC 31.1 g/dL (32.0-36.0); Mean Corpuscular Hemoglobin 24.1 pg (27.0-31.0); Mean Corpuscular Volume 77.7 fL (78.0-98.0); Mean Platelet Volume 11.1 fL (7.4-10.4); Platelet Count 71 thou/uL (130-400); RBC Distribution Width 12.4 % (11.5-14.5); Red Blood Cell (RBC) Count 5.02 mill/uL (4.20-5.40); White Blood Cell (WBC) Count 6.1 thou/uL (4.8-10.8)
[2021-05-07 17:19] LABS: ALT (SGPT) 23 U/L (8-55); AST (SGOT) 30 U/L (5-34); Albumin 4.1 g/dL (3.4-4.8); Alkaline Phosphatase 76 U/L (40-110); Anion Gap 14 mmol/L (10-20); BUN (Urea Nitrogen) 21 mg/dL (9.8-20.1); Calc. Creatinine Clearance 0 mL/min (70-130); Carbon Dioxide 22 mmol/L (23-31); Chloride 109 mmol/L (98-107); Globulin 2.5 g/dL (2.4-3.5); Glucose 184 mg/dL (80-115); Potassium 3.3 mmol/L (3.5-5.1); Protein, Total 6.6 g/dL (5.8-8.1); Sodium 142 mmol/L (136-145)
[2021-05-07 17:25] LABS: Bacteria/HPF 1+ HPF (None Seen); Bilirubin Negative (Negative); Blood, Urine Negative (Negative); Clarity Clear (Clear); Glucose, Urine (Dipstick) Greater than 1000 mg/dL (Negative); Ketone, Urine Negative (Negative); Leukocyte 75 Leu/uL (Negative); Nitrite Negative (Negative); Protein, Urine (Dipstick) 10 mg/dL (Neg-Trace); RBC/HPF 0-3 HPF (0-3); Specific Gravity, Urine 1.032 (1.002-1.036); Urobilinogen Normal mg/dL (Less than 2); pH, Urine 5.5 (5.0-9.0)
[2021-05-07] MEDS ORDERED: Cephalexin 250 MG CAP ONE (18:12)
[2021-05-07] MEDS ORDERED: Potassium Chloride 20 MEQ TAB ONE (18:12)
[2021-05-07] MEDS ORDERED: Cephalexin 250 MG CAP PO SCH (18:15)
[2021-05-07] MEDS ORDERED: Potassium Chloride 20 MEQ TAB PO SCH (18:15)
[2021-05-07 19:49] LABS: Troponin I Less than 0.010 ng/mL (< 0.028)
[2021-05-07 21:53] LABS: SARS-CoV-2 PCR by NAA Not Detected (NotDetected)
== END 2021-05-07 21:45 | disposition home or self-care (01) ==
LOC: ERS 16:01
DX: N39.0 Urinary tract infection, site not specified (principal); E87.6 Hypokalemia; Z20.822 Contact with and (suspected) exposure to COVID-19; E11.9 Type 2 diabetes mellitus without complications; I10 Essential (primary) hypertension
CPT/HCPCS: 80053; 84484; 85025; 87086; 87804 ×2; 93005; U0003; U0005; 36415; 81003; 81015

== ENCOUNTER 2021-07-06 21:11 | Observation (INO) | payer MEDICARE ==
[2021-07-06 22:09] LABS: Bilirubin Negative (Negative); Blood, Urine Negative (Negative); Clarity Turbid (Clear); Glucose, Urine (Dipstick) Greater than 1000 mg/dL (Negative); Ketone, Urine Negative (Negative); Leukocyte 500 Leu/uL (Negative); Nitrite Negative (Negative); Protein, Urine (Dipstick) Negative (Neg-Trace); RBC/HPF 0-3 HPF (0-3); Specific Gravity, Urine 1.015 (1.002-1.036); Urobilinogen Normal mg/dL (Less than 2); pH, Urine 5.5 (5.0-9.0)
[2021-07-06 22:11] LABS: Bacteria/HPF 1+ HPF (None Seen)
[2021-07-06] MEDS ORDERED: Ondansetron PF 4 MG/2 ML Vial ONE (22:24)
[2021-07-06] MEDS ORDERED: Ketorolac Tromethamine 30 MG/ML VIAL ONE (22:24)
[2021-07-06 22:28] LABS: ALT (SGPT) 21 U/L (8-55); AST (SGOT) 31 U/L (5-34); Albumin 4.1 g/dL (3.4-4.8); Alkaline Phosphatase 105 U/L (40-110); Anion Gap 13 mmol/L (10-20); BUN (Urea Nitrogen) 19 mg/dL (9.8-20.1); Bilirubin, Total 0.6 mg/dL (0.2-1.2); Calc. Creatinine Clearance 0 mL/min (70-130); Calcium 8.8 mg/dL (7.8-10.44); Carbon Dioxide 22 mmol/L (23-31); Chloride 109 mmol/L (98-107); Globulin 2.6 g/dL (2.4-3.5); Glucose 163 mg/dL (83-110); Potassium 3.9 mmol/L (3.5-5.1); Protein, Total 6.7 g/dL (5.8-8.1); Sodium 140 mmol/L (136-145)
[2021-07-06 22:35] LABS: Band 1 % (5-11); Eosinophils 24 % (0-10); Hemoglobin 12.4 g/dL (12.0-16.0); Lymphocytes 31 % (21-51); MDiff Complete? YES; Mean Corpuscular HGB CONC 31.4 g/dL (32.0-36.0); Mean Corpuscular Hemoglobin 25.1 pg (27.0-31.0); Mean Corpuscular Volume 79.7 fL (78.0-98.0); Mean Platelet Volume 8.8 fL (7.4-10.4); Monocytes 2 % (0-10); Neutrophil 42 % (42-75); Platelet Count 75 thou/uL (130-400); Platelet Morphology Comment Appears Decreased; RBC Distribution Width 12.6 % (11.5-14.5); Red Blood Cell (RBC) Count 4.95 mill/uL (4.20-5.40); White Blood Cell (WBC) Count 8.5 thou/uL (4.8-10.8)
[2021-07-06 23:32] LABS: SARS-CoV-2 NAA Rapid Test Not Detected (NotDetected)
[2021-07-06] MEDS ORDERED: cefTRIAXone\\ROCEPHIN 1 GM VIAL ONE (23:55)
[2021-07-06] MEDS ORDERED: Acetaminophen 500 MG TAB ONE (23:55)
[2021-07-07] MEDS ORDERED: HYDROcodone/Acetaminophen 5/325 mg Tablet PO PRN (02:27)
[2021-07-07] MEDS ORDERED: Dextrose 50% Abboject 50 ML SYRINGE SLOW IVP PRN (02:27)
[2021-07-07] MEDS ORDERED: Ondansetron PF 4 MG/2 ML Vial IVP PRN (02:27)
[2021-07-07] MEDS ORDERED: Dextrose 5% in Water 1,000 ML IV PRN (02:27)
[2021-07-07] MEDS ORDERED: Bisacodyl 5 MG TAB PO PRN (02:27)
[2021-07-07] MEDS ORDERED: Acetaminophen 325 MG TAB PO PRN (02:27)
[2021-07-07] MEDS ORDERED: HumaLOG 300 UNITS/3 ML VIAL SC PRN ×2 (02:27)
[2021-07-07] MEDS ORDERED: Zolpidem Tartrate 5 MG TAB PO PRN (02:27)
[2021-07-07] MEDS ORDERED: hydrALAZINE 20 MG/ML VIAL SLOW IVP PRN (02:29)
[2021-07-07] MEDS ORDERED: GUAIFENESIN SF SOLN 200 MG/10 ML UDCUP PO PRN (02:29)
[2021-07-07] MEDS ORDERED: Morphine 2 MG/ML VIAL SLOW IVP PRN (02:29)
[2021-07-07 03:41] VITALS: BMI 36.0
[2021-07-07] MEDS: Sodium Chloride 0.9% 1,000 ML IV SCH ×2 (04:24→15:37)
[2021-07-07 06:26] LABS: Hemoglobin 11.1 g/dL (12.0-16.0); Mean Corpuscular HGB CONC 31.9 g/dL (32.0-36.0); Mean Corpuscular Hemoglobin 25.5 pg (27.0-31.0); Mean Platelet Volume 8.8 fL (7.4-10.4); Platelet Count 62 thou/uL (130-400); RBC Distribution Width 12.4 % (11.5-14.5); Red Blood Cell (RBC) Count 4.34 mill/uL (4.20-5.40); White Blood Cell (WBC) Count 6.3 thou/uL (4.8-10.8)
[2021-07-07 06:31] LABS: ALT (SGPT) 18 U/L (8-55); AST (SGOT) 27 U/L (5-34); Albumin 3.5 g/dL (3.4-4.8); Alkaline Phosphatase 87 U/L (40-110); Anion Gap 9 mmol/L (10-20); BUN (Urea Nitrogen) 19 mg/dL (9.8-20.1); Bilirubin, Total 0.6 mg/dL (0.2-1.2); Calc. Creatinine Clearance 73 mL/min (70-130); Calcium 8.1 mg/dL (7.8-10.44); Carbon Dioxide 21 mmol/L (23-31); Chloride 112 mmol/L (98-107); Glucose 186 mg/dL (83-110); Magnesium 1.5 mg/dL (1.6-2.6); Potassium 3.5 mmol/L (3.5-5.1); Protein, Total 5.5 g/dL (5.8-8.1); Sodium 138 mmol/L (136-145)
[2021-07-07 06:38] LABS: Band 2 % (5-11); Eosinophils 28 % (0-10); Lymphocytes 26 % (21-51); MDiff Complete? YES; Monocytes 3 % (0-10); Neutrophil 41 % (42-75); Platelet Morphology Comment Appears Decreased
[2021-07-07] MEDS ORDERED: Potassium Chloride 20 MEQ TAB PO SCH (07:45)
[2021-07-07] MEDS ORDERED: Magnesium 2 GM/50 ML(in water) 2 GM in Premix Bag 1 BAG IVPB SCH (08:00)
[2021-07-07] MEDS: Famotidine 20 MG TAB PO SCH (08:30)
[2021-07-07] MEDS: Zinc Sulfate 220 MG CAP PO SCH (08:30)
[2021-07-07] MEDS: metFORMIN 850 MG TAB PO SCH ×2 (08:30→16:54)
[2021-07-07] MEDS: Carvedilol 6.25 MG TAB PO SCH ×2 (08:31→16:54)
[2021-07-07] MEDS: Aspirin Chewable 81 MG TAB PO SCH (08:31)
[2021-07-07] MEDS: Atorvastatin Calcium 40 MG TAB PO SCH (20:32)
[2021-07-08] MEDS: Sodium Chloride 0.9% 1,000 ML IV SCH ×2 (04:23→17:23)
[2021-07-08 06:26] LABS: Hemoglobin 10.8 g/dL (12.0-16.0); Mean Corpuscular HGB CONC 31.8 g/dL (32.0-36.0); Mean Corpuscular Hemoglobin 25.6 pg (27.0-31.0); Mean Corpuscular Volume 80.5 fL (78.0-98.0); Mean Platelet Volume 9.2 fL (7.4-10.4); Platelet Count 58 thou/uL (130-400); RBC Distribution Width 12.6 % (11.5-14.5); Red Blood Cell (RBC) Count 4.24 mill/uL (4.20-5.40); White Blood Cell (WBC) Count 5.4 thou/uL (4.8-10.8)
[2021-07-08 06:48] LABS: Anion Gap 11 mmol/L (10-20); BUN (Urea Nitrogen) 11 mg/dL (9.8-20.1); Calc. Creatinine Clearance 73 mL/min (70-130); Calcium 8.4 mg/dL (7.8-10.44); Carbon Dioxide 20 mmol/L (23-31); Chloride 112 mmol/L (98-107); Glucose 131 mg/dL (83-110); Sodium 139 mmol/L (136-145)
[2021-07-08 06:53] LABS: Band 2 % (5-11); Eosinophils 26 % (0-10); Hypochromia SLIGHT = 6-15 cells (100X) (0-5/hpf); Lymphocytes 31 % (21-51); MDiff Complete? YES; Monocytes 7 % (0-10); Neutrophil 29 % (42-75); Platelet Morphology Comment Appears Decreased; Reactive Lymphocytes 5 % (0-10)
[2021-07-08] MEDS: Carvedilol 6.25 MG TAB PO SCH ×2 (07:58→17:23)
[2021-07-08] MEDS: metFORMIN 850 MG TAB PO SCH ×2 (07:58→17:23)
[2021-07-08] MEDS: Famotidine 20 MG TAB PO SCH (08:00)
[2021-07-08] MEDS: Aspirin Chewable 81 MG TAB PO SCH (08:00)
[2021-07-08] MEDS: Zinc Sulfate 220 MG CAP PO SCH (08:00)
[2021-07-08] MEDS ORDERED: Amlodipine 5 MG TAB PO SCH (14:30)
[2021-07-08] MEDS: Atorvastatin Calcium 40 MG TAB PO SCH (20:17)
[2021-07-09] MEDS ORDERED: Haloperidol Lactate 5 MG/ML VIAL IM PRN (00:15)
[2021-07-09] MEDS ORDERED: Aspirin 325 MG TAB PO SCH (02:56)
[2021-07-09] MEDS ORDERED: Nitroglycerin 0.4 MG TAB (25 Tab Bottle) SL PRN (02:56)
[2021-07-09 03:00] LABS: Anion Gap 15 mmol/L (10-20); BUN (Urea Nitrogen) 12 mg/dL (9.8-20.1); Calc. Creatinine Clearance 69 mL/min (70-130); Calcium 9.2 mg/dL (7.8-10.44); Carbon Dioxide 20 mmol/L (23-31); Chloride 108 mmol/L (98-107); Glucose 105 mg/dL (83-110); Magnesium 1.6 mg/dL (1.6-2.6); Potassium 3.9 mmol/L (3.5-5.1); Sodium 139 mmol/L (136-145)
[2021-07-09 03:06] LABS: Band 12 % (5-11); Eosinophils 17 % (0-10); Hemoglobin 12.4 g/dL (12.0-16.0); Lymphocytes 22 % (21-51); MDiff Complete? YES; Mean Corpuscular HGB CONC 32.7 g/dL (32.0-36.0); Mean Corpuscular Hemoglobin 25.8 pg (27.0-31.0); Mean Corpuscular Volume 78.9 fL (78.0-98.0); Monocytes 5 % (0-10); Neutrophil 44 % (42-75); Platelet Count 71 thou/uL (130-400); Platelet Morphology Comment Appears Decreased; RBC Distribution Width 12.5 % (11.5-14.5); Red Blood Cell (RBC) Count 4.82 mill/uL (4.20-5.40); White Blood Cell (WBC) Count 8.2 thou/uL (4.8-10.8)
[2021-07-09] MEDS ORDERED: Magnesium 2 GM/50 ML(in water) 2 GM in Premix Bag 1 BAG IVPB SCH (03:30)
[2021-07-09] MEDS ORDERED: Haloperidol Lactate 5 MG/ML VIAL IM SCH (07:32)
[2021-07-09] MEDS: Sodium Chloride 0.9% 1,000 ML IV SCH (07:59)
[2021-07-09] MEDS: Aspirin Chewable 81 MG TAB PO SCH (08:05)
[2021-07-09] MEDS: metFORMIN 850 MG TAB PO SCH ×2 (08:33→16:09)
[2021-07-09] MEDS: Zinc Sulfate 220 MG CAP PO SCH (08:33)
[2021-07-09] MEDS: Carvedilol 6.25 MG TAB PO SCH ×2 (08:33→16:09)
[2021-07-09] MEDS: Famotidine 20 MG TAB PO SCH (08:43)
[2021-07-09] MEDS ORDERED: Amlodipine 5 MG TAB PO SCH (09:00)
[2021-07-09 12:41] LABS: Amphetamine Not Detected (NotDetected); Barbiturates Screen Not Detected (NotDetected); Benzodiazepine Screen Not Detected (NotDetected); Cocaine Metabolite Screen Not Detected (NotDetected); Methadone Not Detected (NotDetected); Methamphetamine Not Detected (NotDetected); Opiate Screen Not Detected (NotDetected); Oxycodone Screen Not Detected (NotDetected); Phencyclidine (PCP) Not Detected (NotDetected); THC/Cannabinoid Screen Not Detected (NotDetected); Tricyclic Screen Not Detected (NotDetected)
[2021-07-09 16:34] VITALS: BP 166/73; TEMP 98.1
== END 2021-07-09 19:20 | disposition home or self-care (01) ==
LOC: ERS 21:11 → SURG A 07-07 01:46 → MSONC 07-08 16:55
PROVIDERS: ADMIT Hospitalist; ATTEND Hospitalist
DX: N30.90 Cystitis, unspecified without hematuria (principal); B95.5 Unspecified streptococcus as the cause of diseases classified elsewhere; R53.1 Weakness; I10 Essential (primary) hypertension; E11.9 Type 2 diabetes mellitus without complications; D69.6 Thrombocytopenia, unspecified; E78.5 Hyperlipidemia, unspecified; R05.9 Cough, unspecified; R07.81 Pleurodynia; R10.31 Right lower quadrant pain; M17.12 Unilateral primary osteoarthritis, left knee; G89.11 Acute pain due to trauma; M25.562 Pain in left knee; M85.862 Other specified disorders of bone density and structure, left lower leg; M76.892 Other specified enthesopathies of left lower limb, excluding foot; G93.40 Encephalopathy, unspecified; E87.6 Hypokalemia; E83.42 Hypomagnesemia; Z79.82 Long term (current) use of aspirin; Z79.84 Long term (current) use of oral hypoglycemic drugs; Z79.899 Other long term (current) drug therapy; Z20.822 Contact with and (suspected) exposure to COVID-19; W19.XXXA Unspecified fall, initial encounter
CPT/HCPCS: 0240U; 71045 ×2; 73564; 80048 ×2; 80053 ×2; 80306; 82962 ×4; 83735 ×2; 84484 ×2; 85025 ×4; 87086; 93005 ×2; 96372; 96375; 97116; 97139 ×4; 97535; G0378 ×4; 36415; 36416; 81003; 81015; 93010; 96374; J0360; J0696; J1815; J1885; J1956; J2405; J3475; J7050

== ENCOUNTER 2021-07-14 22:06 | Emergency (ER) | payer MEDICARE ==
[2021-07-14] MEDS ORDERED: Ketorolac Tromethamine 30 MG/ML VIAL ONE (23:21)
== END 2021-07-15 00:07 | disposition home or self-care (01) ==
LOC: ERS 22:06
DX: S09.90XA Unspecified injury of head, initial encounter (principal); S00.31XA Abrasion of nose, initial encounter; S00.81XA Abrasion of other part of head, initial encounter; E11.9 Type 2 diabetes mellitus without complications; I10 Essential (primary) hypertension; Z79.84 Long term (current) use of oral hypoglycemic drugs; Y04.2XXA Assault by strike against or bumped into by another person, initial encounter
CPT/HCPCS: 70450; 71045; 96372; J1885

== ENCOUNTER 2021-07-15 04:17 | Emergency (ER) | payer MEDICARE ==
[2021-07-15 05:10] LABS: Hemoglobin 11.8 g/dL (12.0-16.0); Mean Corpuscular HGB CONC 31.4 g/dL (32.0-36.0); Mean Corpuscular Hemoglobin 25.6 pg (27.0-31.0); Mean Corpuscular Volume 81.5 fL (78.0-98.0); Mean Platelet Volume 8.3 fL (7.4-10.4); Platelet Count 72 thou/uL (130-400); RBC Distribution Width 12.7 % (11.5-14.5); Red Blood Cell (RBC) Count 4.62 mill/uL (4.20-5.40); White Blood Cell (WBC) Count 7.2 thou/uL (4.8-10.8)
[2021-07-15 05:29] LABS: Band 1 % (5-11); Eosinophils 16 % (0-10); Hypochromia SLIGHT = 6-15 cells (100X) (0-5/hpf); Lymphocytes 33 % (21-51); MDiff Complete? YES; Monocytes 4 % (0-10); Neutrophil 45 % (42-75); Platelet Morphology Comment Appears Decreased; Target Cells SLIGHT = 2-5 cells (100X) (0-1/hpf)
[2021-07-15 05:32] LABS: ALT (SGPT) 32 U/L (8-55); AST (SGOT) 41 U/L (5-34); Albumin 3.9 g/dL (3.4-4.8); Alkaline Phosphatase 52 U/L (40-110); Anion Gap 14 mmol/L (10-20); BUN (Urea Nitrogen) 16 mg/dL (9.8-20.1); Bilirubin, Total 0.7 mg/dL (0.2-1.2); CK (CPK) 466 U/L (29-168); Calc. Creatinine Clearance 0 mL/min (70-130); Calcium 8.8 mg/dL (7.8-10.44); Carbon Dioxide 21 mmol/L (23-31); Chloride 109 mmol/L (98-107); Globulin 2.2 g/dL (2.4-3.5); Glucose 88 mg/dL (83-110); Potassium 4.2 mmol/L (3.5-5.1); Protein, Total 6.1 g/dL (5.8-8.1); Sodium 140 mmol/L (136-145)
== END 2021-07-15 06:12 | disposition home or self-care (01) ==
LOC: ERS 04:17
DX: G89.29 Other chronic pain (principal); R07.9 Chest pain, unspecified; E11.9 Type 2 diabetes mellitus without complications; I10 Essential (primary) hypertension; Y08.89XA Assault by other specified means, initial encounter
CPT/HCPCS: 36415; 80053; 82550; 83690; 84484; 85025; 93005

== ENCOUNTER 2021-08-03 11:13 | Observation (INO) | payer MEDICARE ==
[2021-08-03 12:06] LABS: ALT (SGPT) 28 U/L (8-55); AST (SGOT) 29 U/L (5-34); Albumin 4.2 g/dL (3.4-4.8); Alkaline Phosphatase 69 U/L (40-110); Anion Gap 15 mmol/L (10-20); BUN (Urea Nitrogen) 23 mg/dL (9.8-20.1); Bilirubin, Total 0.9 mg/dL (0.2-1.2); Calc. Creatinine Clearance 0 mL/min (70-130); Calcium 9.1 mg/dL (7.8-10.44); Carbon Dioxide 21 mmol/L (23-31); Globulin 2.3 g/dL (2.4-3.5); Glucose 129 mg/dL (83-110); Lipase 25 U/L (8-78); Potassium 3.7 mmol/L (3.5-5.1); Protein, Total 6.5 g/dL (5.8-8.1); Sodium 141 mmol/L (136-145)
[2021-08-03 12:11] LABS: Chloride 109 mmol/L (98-107)
[2021-08-03] MEDS ORDERED: Meclizine HCl 25 MG TAB ONE (12:35)
[2021-08-03 15:00] LABS: #Eosinphils 0.4 thou/uL (0.0-0.7); #Lymphocytes 1.3 thou/uL (1.20-3.40); #Monocytes 0.4 thou/uL (0.11-0.59); #Neutrophils 3.9 thou/uL (1.40-6.50); %Basophils 0.1 % (0.0-1.0); %Monocytes 6.8 % (0.0-10.0); %Neutrophils 65.1 % (42.0-75.0); Hemoglobin 11.7 g/dL (12.0-16.0); Mean Corpuscular HGB CONC 31.6 g/dL (32.0-36.0); Mean Corpuscular Volume 79.3 fL (78.0-98.0); Platelet Count 84 thou/uL (130-400); RBC Distribution Width 12.5 % (11.5-14.5); Red Blood Cell (RBC) Count 4.68 mill/uL (4.20-5.40); White Blood Cell (WBC) Count 5.9 thou/uL (4.8-10.8)
[2021-08-03] MEDS ORDERED: Aspirin 325 mg Enteric Coated Tablet PO SCH (15:49)
[2021-08-03] MEDS ORDERED: Dextrose 5% in Water 1,000 ML IV PRN (15:53)
[2021-08-03] MEDS ORDERED: HumaLOG 300 UNITS/3 ML VIAL SC PRN (15:53)
[2021-08-03] MEDS ORDERED: Dextrose 50% Abboject 50 ML SYRINGE SLOW IVP PRN (15:53)
[2021-08-03] MEDS ORDERED: Ondansetron PF 4 MG/2 ML Vial IVP PRN (15:54)
[2021-08-03] MEDS ORDERED: Ondansetron ODT 4 MG TAB PO PRN (15:54)
[2021-08-03] MEDS ORDERED: Senokot S 8.6-50 MG TAB PO PRN (15:54)
[2021-08-03] MEDS: Benzonatate 100 MG CAP PO PRN (21:44)
[2021-08-03] MEDS: Sodium Chloride 0.9% 1,000 ML IV SCH (21:44)
[2021-08-03 23:18] LABS: SARS-CoV-2 NAA Rapid Test Not Detected (NotDetected)
[2021-08-03 23:29] VITALS: BMI 25.1
[2021-08-04 02:31] LABS: Bilirubin Negative (Negative); Blood, Urine Negative (Negative); Clarity Clear (Clear); Glucose, Urine (Dipstick) 500 mg/dL (Negative); Ketone, Urine Negative (Negative); Leukocyte 25 Leu/uL (Negative); Nitrite Negative (Negative); Protein, Urine (Dipstick) Negative (Neg-Trace); RBC/HPF 0-3 HPF (0-3); Squamous Epithelial 0-3 HPF (0-3); Urobilinogen Normal mg/dL (Less than 2); WBC/HPF 0-3 HPF (0-3)
[2021-08-04 02:50] LABS: Bacteria/HPF 1+ HPF (None Seen)
[2021-08-04 05:52] LABS: Anion Gap 12 mmol/L (10-20); BUN (Urea Nitrogen) 15 mg/dL (9.8-20.1); Calc. Creatinine Clearance 74 mL/min (70-130); Calcium 8.1 mg/dL (7.8-10.44); Carbon Dioxide 22 mmol/L (23-31); Chloride 111 mmol/L (98-107); Glucose 97 mg/dL (83-110); Potassium 3.6 mmol/L (3.5-5.1); Sodium 141 mmol/L (136-145)
[2021-08-04 06:44] LABS: #Eosinphils 0.4 thou/uL (0.0-0.7); #Lymphocytes 1.5 thou/uL (1.20-3.40); #Monocytes 0.3 thou/uL (0.11-0.59); #Neutrophils 2.4 thou/uL (1.40-6.50); %Basophils 0.3 % (0.0-1.0); %Lymphocytes 32.7 % (21.0-51.0); %Monocytes 6.8 % (0.0-10.0); %Neutrophils 51.3 % (42.0-75.0); Hemoglobin 10.8 g/dL (12.0-16.0); Mean Corpuscular HGB CONC 30.7 g/dL (32.0-36.0); Mean Corpuscular Hemoglobin 24.7 pg (27.0-31.0); Mean Corpuscular Volume 80.6 fL (78.0-98.0); Mean Platelet Volume 12.6 fL (7.4-10.4); Platelet Count 72 thou/uL (130-400); Platelet Morphology Comment Appears Decreased; RBC Distribution Width 12.5 % (11.5-14.5); Red Blood Cell (RBC) Count 4.37 mill/uL (4.20-5.40); White Blood Cell (WBC) Count 4.6 thou/uL (4.8-10.8)
[2021-08-04] MEDS: Sodium Chloride 0.9% 1,000 ML IV SCH (08:40)
[2021-08-04] MEDS: Aspirin 81 mg Enteric Coated Tablet PO SCH (08:40)
[2021-08-04] MEDS: Benzonatate 100 MG CAP PO PRN (11:21)
[2021-08-04] MEDS: Acetaminophen 325 MG TAB PO PRN ×2 (11:21→16:08)
[2021-08-04] MEDS: HumaLOG 300 UNITS/3 ML VIAL SC PRN (16:08)
[2021-08-04] MEDS: guaiFENesin 200 MG TAB PO PRN (16:08)
[2021-08-04] MEDS ORDERED: Atorvastatin Calcium 40 MG TAB PO SCH (21:00)
[2021-08-05 05:53] LABS: Hemoglobin 11.2 g/dL (12.0-16.0); Mean Corpuscular HGB CONC 30.7 g/dL (32.0-36.0); Mean Corpuscular Hemoglobin 24.7 pg (27.0-31.0); Mean Corpuscular Volume 80.4 fL (78.0-98.0); Mean Platelet Volume 12.2 fL (7.4-10.4); Platelet Count 79 thou/uL (130-400); RBC Distribution Width 12.6 % (11.5-14.5); Red Blood Cell (RBC) Count 4.52 mill/uL (4.20-5.40); White Blood Cell (WBC) Count 4.1 thou/uL (4.8-10.8)
[2021-08-05 05:55] LABS: Anion Gap 13 mmol/L (10-20); BUN (Urea Nitrogen) 11 mg/dL (9.8-20.1); Calc. Creatinine Clearance 64 mL/min (70-130); Calcium 8.6 mg/dL (7.8-10.44); Carbon Dioxide 22 mmol/L (23-31); Chloride 110 mmol/L (98-107); Glucose 222 mg/dL (83-110); Potassium 3.6 mmol/L (3.5-5.1); Sodium 141 mmol/L (136-145)
[2021-08-05] MEDS: guaiFENesin 200 MG TAB PO PRN (06:04)
[2021-08-05] MEDS: HumaLOG 300 UNITS/3 ML VIAL SC PRN (06:05)
[2021-08-05 06:15] LABS: #Eosinphils 0.4 thou/uL (0.0-0.7); #Lymphocytes 1.4 thou/uL (1.20-3.40); #Monocytes 0.2 thou/uL (0.11-0.59); #Neutrophils 2.1 thou/uL (1.40-6.50); %Basophils 0.4 % (0.0-1.0); %Eosinophils 9.8 % (0.0-10.0); %Lymphocytes 34.2 % (21.0-51.0); %Monocytes 5.7 % (0.0-10.0); %Neutrophils 49.9 % (42.0-75.0); Platelet Morphology Comment Appears Decreased
[2021-08-05] MEDS: Aspirin 81 mg Enteric Coated Tablet PO SCH (09:00)
[2021-08-05 12:14] VITALS: BP 156/65; TEMP 97.7
== END 2021-08-05 13:52 | disposition home or self-care (01) ==
LOC: ERS 11:13 → ERHOLD 15:21 → NEURO 20:58
PROVIDERS: ADMIT Internal Medicine; ATTEND Internal Medicine
DX: R53.1 Weakness (principal); R42 Dizziness and giddiness; R10.30 Lower abdominal pain, unspecified; E11.10 Type 2 diabetes mellitus with ketoacidosis without coma; R05.8 Other specified cough; R29.6 Repeated falls; D69.6 Thrombocytopenia, unspecified; I10 Essential (primary) hypertension; E78.5 Hyperlipidemia, unspecified; M47.812 Spondylosis without myelopathy or radiculopathy, cervical region; M48.02 Spinal stenosis, cervical region; M50.31 Other cervical disc degeneration, high cervical region; Z79.82 Long term (current) use of aspirin; Z79.84 Long term (current) use of oral hypoglycemic drugs; Z79.899 Other long term (current) drug therapy; Z20.822 Contact with and (suspected) exposure to COVID-19; W19.XXXA Unspecified fall, initial encounter; Y92.009 Unspecified place in unspecified non-institutional (private) residence as the place of occurrence of the external cause
CPT/HCPCS: 0240U; 70450; 70551; 71045; 72125; 72141; 80048 ×2; 80053; 81001; 82962 ×3; 83690; 83880; 84484; 85025 ×3; 93005; 96360; 96361; 97116; 97139 ×2; 99285; 36415; 36416; G0378; J7050

== ENCOUNTER 2021-08-24 09:51 | Emergency (ER) | payer MEDICARE ==
[2021-08-24] MEDS ORDERED: diphenhydrAMINE 50 MG/ML VIAL ONE (10:53)
[2021-08-24] MEDS ORDERED: Metoclopramide HCl 10 MG/2 ML VIAL ONE (10:53)
[2021-08-24] MEDS ORDERED: Acetaminophen 500 MG TAB ONE (11:05)
[2021-08-24 12:20] LABS: SARS-CoV-2 NAA Rapid Test DETECTED (NotDetected)
[2021-08-24] MEDS ORDERED: Magnesium 2 GM/50 ML BAG (IN WATER) ONE (12:23)
== END 2021-08-24 13:10 | disposition home or self-care (01) ==
LOC: ERS 09:51
DX: U07.1 COVID-19 (principal); E11.9 Type 2 diabetes mellitus without complications; I10 Essential (primary) hypertension
CPT/HCPCS: 0240U; 94760; 96374; 96375; J1200; J2765; J3475

== ENCOUNTER 2021-09-05 16:58 | Observation (INO) | payer MEDICARE, OTHER ==
[2021-09-05] MEDS ORDERED: Aspirin Chewable 81 MG TAB ONE (18:05)
[2021-09-05 18:14] LABS: #Basophils 0.1 thou/uL (0.0-0.2); #Eosinphils 0.7 thou/uL (0.0-0.7); #Lymphocytes 1.3 thou/uL (1.20-3.40); #Monocytes 0.4 thou/uL (0.11-0.59); #Neutrophils 3.7 thou/uL (1.40-6.50); %Basophils 0.9 % (0.0-1.0); %Lymphocytes 21.2 % (21.0-51.0); Hemoglobin 11.3 g/dL (12.0-16.0); Mean Corpuscular HGB CONC 30.7 g/dL (32.0-36.0); Mean Corpuscular Hemoglobin 24.7 pg (27.0-31.0); Mean Corpuscular Volume 80.4 fL (78.0-98.0); Mean Platelet Volume 8.6 fL (7.4-10.4); Platelet Count 83 thou/uL (130-400); RBC Distribution Width 13.2 % (11.5-14.5); Red Blood Cell (RBC) Count 4.58 mill/uL (4.20-5.40); White Blood Cell (WBC) Count 6.1 thou/uL (4.8-10.8)
[2021-09-05 18:40] LABS: ALT (SGPT) 23 U/L (8-55); AST (SGOT) 27 U/L (5-34); Albumin 3.9 g/dL (3.4-4.8); Alkaline Phosphatase 59 U/L (40-110); Anion Gap 15 mmol/L (10-20); BUN (Urea Nitrogen) 23 mg/dL (9.8-20.1); Bilirubin, Total 0.8 mg/dL (0.2-1.2); Calc. Creatinine Clearance 0 mL/min (70-130); Calcium 9.1 mg/dL (7.8-10.44); Carbon Dioxide 22 mmol/L (23-31); Chloride 111 mmol/L (98-107); Globulin 2.3 g/dL (2.4-3.5); Glucose 197 mg/dL (83-110); Lipase 23 U/L (8-78); Potassium 3.6 mmol/L (3.5-5.1); Protein, Total 6.2 g/dL (5.8-8.1); Sodium 144 mmol/L (136-145)
== END 2021-09-05 21:22 | disposition left against medical advice (07) ==
LOC: ERS 16:58 → ERHOLD 20:22
PROVIDERS: ADMIT Student in an Organized Health Care Education/Training Program; ATTEND Student in an Organized Health Care Education/Training Program
DX: R07.9 Chest pain, unspecified (principal); R42 Dizziness and giddiness; R53.1 Weakness; E11.9 Type 2 diabetes mellitus without complications; E78.5 Hyperlipidemia, unspecified; I10 Essential (primary) hypertension; Z53.29 Procedure and treatment not carried out because of patient's decision for other reasons
CPT/HCPCS: 36415; 71045; 80053; 83690; 84484; 85025; 93005; 94760; G0378

== ENCOUNTER 2021-09-14 16:03 | Emergency (ER) | payer MEDICARE, SELFPAY | END 2021-09-14 18:30 | disposition home or self-care (01) | LOC: ERS 16:03 | DX: S09.90XA Unspecified injury of head, initial encounter (principal); S92.425A Nondisplaced fracture of distal phalanx of left great toe, initial encounter for closed fracture; S80.212A Abrasion, left knee, initial encounter; S80.211A Abrasion, right knee, initial encounter; E11.9 Type 2 diabetes mellitus without complications; I10 Essential (primary) hypertension; W19.XXXA Unspecified fall, initial encounter | CPT/HCPCS: 70450 ==

== ENCOUNTER 2021-09-19 12:30 | Inpatient (IN) | payer OTHER, MEDICARE ==
[2021-09-19 13:43] LABS: #Basophils 0.1 thou/uL (0.0-0.2); #Eosinphils 1.5 thou/uL (0.0-0.7); #Lymphocytes 1.9 thou/uL (1.20-3.40); #Monocytes 0.5 thou/uL (0.11-0.59); %Basophils 1.1 % (0.0-1.0); %Eosinophils 21.2 % (0.0-10.0); %Lymphocytes 27.8 % (21.0-51.0); %Monocytes 6.7 % (0.0-10.0); %Neutrophils 43.1 % (42.0-75.0); Hemoglobin 11.9 g/dL (12.0-16.0); Mean Corpuscular HGB CONC 30.8 g/dL (32.0-36.0); Mean Corpuscular Hemoglobin 24.2 pg (27.0-31.0); Mean Corpuscular Volume 78.8 fL (78.0-98.0); Mean Platelet Volume 12.1 fL (7.4-10.4); Platelet Count 83 thou/uL (130-400); RBC Distribution Width 12.8 % (11.5-14.5); Red Blood Cell (RBC) Count 4.92 mill/uL (4.20-5.40)
[2021-09-19] MEDS ORDERED: Haloperidol Lactate 5 MG/ML VIAL ONE (13:50)
[2021-09-19 14:03] LABS: Acetaminophen Less than 10.0 mcg/mL (10.0-30.0); Alcohol Less than 10 mg/dL (Less than 10); Salicylate Less than 8.0 mg/dL (15.0-30.0)
[2021-09-19 14:05] LABS: ALT (SGPT) 37 U/L (8-55); AST (SGOT) 60 U/L (5-34); Albumin 4.4 g/dL (3.4-4.8); Alkaline Phosphatase 56 U/L (40-110); Anion Gap 18 mmol/L (10-20); BUN (Urea Nitrogen) 34 mg/dL (9.8-20.1); Bilirubin, Total 1.5 mg/dL (0.2-1.2); Calc. Creatinine Clearance 0 mL/min (70-130); Calcium 9.7 mg/dL (7.8-10.44); Carbon Dioxide 20 mmol/L (23-31); Chloride 105 mmol/L (98-107); Estimated GFR 72; Globulin 2.5 g/dL (2.4-3.5); Glucose 126 mg/dL (83-110); Potassium 4.2 mmol/L (3.5-5.1); Protein, Total 6.9 g/dL (5.8-8.1); Sodium 139 mmol/L (136-145)
[2021-09-19 16:10] LABS: Bacteria/HPF 2+ HPF (None Seen); Bilirubin Negative (Negative); Blood, Urine Negative (Negative); Clarity Turbid (Clear); Glucose, Urine (Dipstick) 70 mg/dL (Negative); Ketone, Urine 10 mg/dL (Negative); Leukocyte 500 Leu/uL (Negative); Nitrite Negative (Negative); Protein, Urine (Dipstick) Negative (Neg-Trace); Specific Gravity, Urine 1.016 (1.002-1.036); Urobilinogen Normal mg/dL (Less than 2)
[2021-09-19 16:14] LABS: Amphetamine Not Detected (NotDetected); Barbiturates Screen Not Detected (NotDetected); Benzodiazepine Screen Not Detected (NotDetected); Cocaine Metabolite Screen Not Detected (NotDetected); Methadone Not Detected (NotDetected); Methamphetamine Not Detected (NotDetected); Opiate Screen Not Detected (NotDetected); Oxycodone Screen Not Detected (NotDetected); Phencyclidine (PCP) Not Detected (NotDetected); THC/Cannabinoid Screen Not Detected (NotDetected); Tricyclic Screen Not Detected (NotDetected)
[2021-09-19] MEDS ORDERED: Senokot S 8.6-50 MG TAB PO PRN (17:59)
[2021-09-19] MEDS: Sodium Chloride 0.9% 1,000 ML IV SCH (19:15)
[2021-09-19 22:19] VITALS: BMI 22.5
[2021-09-19] MEDS: Famotidine 20 MG TAB PO SCH (23:04)
[2021-09-20] MEDS: Sodium Chloride 0.9% 1,000 ML IV SCH ×3 (00:37→17:30)
[2021-09-20 04:57] LABS: Band 5 % (5-11); Eosinophils 16 % (0-10); Hemoglobin 10.6 g/dL (12.0-16.0); Lymphocytes 26 % (21-51); MDiff Complete? YES; Mean Corpuscular HGB CONC 31.4 g/dL (32.0-36.0); Mean Corpuscular Hemoglobin 24.9 pg (27.0-31.0); Mean Corpuscular Volume 79.4 fL (78.0-98.0); Mean Platelet Volume 11.6 fL (7.4-10.4); Monocytes 3 % (0-10); Neutrophil 49 % (42-75); Platelet Count 69 thou/uL (130-400); Platelet Morphology Comment Appears Decreased; RBC Distribution Width 12.7 % (11.5-14.5); Red Blood Cell (RBC) Count 4.25 mill/uL (4.20-5.40); White Blood Cell (WBC) Count 5.9 thou/uL (4.8-10.8)
[2021-09-20 05:02] LABS: ALT (SGPT) 30 U/L (8-55); AST (SGOT) 50 U/L (5-34); Albumin 3.5 g/dL (3.4-4.8); Alkaline Phosphatase 53 U/L (40-110); Anion Gap 10 mmol/L (10-20); BUN (Urea Nitrogen) 21 mg/dL (9.8-20.1); Bilirubin, Total 0.7 mg/dL (0.2-1.2); Calc. Creatinine Clearance 67 mL/min (70-130); Calcium 8.3 mg/dL (7.8-10.44); Carbon Dioxide 23 mmol/L (23-31); Chloride 110 mmol/L (98-107); Estimated GFR 96; Globulin 1.9 g/dL (2.4-3.5); Glucose 126 mg/dL (83-110); Potassium 3.2 mmol/L (3.5-5.1); Protein, Total 5.4 g/dL (5.8-8.1); Sodium 140 mmol/L (136-145)
[2021-09-20] MEDS ORDERED: Enoxaparin Sodium 30 MG/0.3 ML SYRINGE SC SCH (09:00)
[2021-09-20] MEDS: Famotidine 20 MG TAB PO SCH ×2 (10:45→20:15)
[2021-09-20] MEDS ORDERED: Dextrose 5% in Water 1,000 ML IV PRN (23:11)
[2021-09-20] MEDS ORDERED: HumaLOG 300 UNITS/3 ML VIAL SC PRN (23:11)
[2021-09-20] MEDS ORDERED: Dextrose 50% Abboject 50 ML SYRINGE SLOW IVP PRN (23:11)
[2021-09-21 06:30] LABS: Anion Gap 15 mmol/L (10-20); BUN (Urea Nitrogen) 10 mg/dL (9.8-20.1); Calc. Creatinine Clearance 62 mL/min (70-130); Carbon Dioxide 20 mmol/L (23-31); Chloride 109 mmol/L (98-107); Estimated GFR 94; Glucose 179 mg/dL (83-110); Potassium 3.5 mmol/L (3.5-5.1); Sodium 140 mmol/L (136-145)
[2021-09-21] MEDS ORDERED: Potassium Chloride 20 MEQ TAB PO SCH (07:00)
[2021-09-21] MEDS: Carvedilol 3.125 MG TAB PO SCH ×2 (08:41→17:03)
[2021-09-21] MEDS: Famotidine 20 MG TAB PO SCH ×2 (08:45→20:07)
[2021-09-21] MEDS: cefTRIAXone\\ROCEPHIN 1 GM in Sodium Chloride 0.9% 100 ML IVPB SCH (18:22)
[2021-09-21] MEDS: Sodium Chloride 0.9% 1,000 ML IV SCH (18:22)
[2021-09-22 06:27] LABS: #Eosinphils 1.1 thou/uL (0.0-0.7); #Lymphocytes 1.4 thou/uL (1.20-3.40); #Monocytes 0.4 thou/uL (0.11-0.59); #Neutrophils 2.3 thou/uL (1.40-6.50); %Basophils 0.2 % (0.0-1.0); %Lymphocytes 26.7 % (21.0-51.0); %Monocytes 6.7 % (0.0-10.0); %Neutrophils 44.5 % (42.0-75.0); Hemoglobin 10.8 g/dL (12.0-16.0); Mean Corpuscular HGB CONC 31.2 g/dL (32.0-36.0); Mean Platelet Volume 8.7 fL (7.4-10.4); Platelet Count 67 thou/uL (130-400); RBC Distribution Width 12.9 % (11.5-14.5); Red Blood Cell (RBC) Count 4.31 mill/uL (4.20-5.40); White Blood Cell (WBC) Count 5.2 thou/uL (4.8-10.8)
[2021-09-22] MEDS: Sodium Chloride 0.9% 1,000 ML IV SCH ×2 (06:32→12:02)
[2021-09-22 06:49] LABS: Anion Gap 11 mmol/L (10-20); BUN (Urea Nitrogen) 8 mg/dL (9.8-20.1); Calc. Creatinine Clearance 78 mL/min (70-130); Calcium 8.8 mg/dL (7.8-10.44); Carbon Dioxide 25 mmol/L (23-31); Chloride 112 mmol/L (98-107); Estimated GFR 100; Glucose 103 mg/dL (83-110); Potassium 3.6 mmol/L (3.5-5.1); Sodium 144 mmol/L (136-145)
[2021-09-22] MEDS: Carvedilol 3.125 MG TAB PO SCH ×2 (08:11→17:46)
[2021-09-22] MEDS: Famotidine 20 MG TAB PO SCH (08:12)
[2021-09-22] MEDS ORDERED: Aspirin 81 mg Enteric Coated Tablet PO SCH (11:30)
[2021-09-22] MEDS ORDERED: cloNIDine 0.1 MG TAB PO PRN (11:37)
[2021-09-22] MEDS: cefTRIAXone\\ROCEPHIN 1 GM in Sodium Chloride 0.9% 100 ML IVPB SCH (17:46)
[2021-09-22] MEDS: HumaLOG 300 UNITS/3 ML VIAL SC PRN (17:47)
[2021-09-22] MEDS: Acetaminophen 325 MG TAB PO PRN (20:36)
[2021-09-22] MEDS: Folic Acid 1 MG TAB PO SCH (20:36)
[2021-09-22] MEDS: OLANZapine 2.5 MG TAB PO SCH (20:36)
[2021-09-23] MEDS: Sodium Chloride 0.9% 1,000 ML IV SCH (06:16)
[2021-09-23 07:11] LABS: Anion Gap 10 mmol/L (10-20); BUN (Urea Nitrogen) 12 mg/dL (9.8-20.1); Calc. Creatinine Clearance 72 mL/min (70-130); Calcium 8.4 mg/dL (7.8-10.44); Carbon Dioxide 24 mmol/L (23-31); Chloride 110 mmol/L (98-107); Estimated GFR 98; Glucose 120 mg/dL (83-110); Magnesium 1.5 mg/dL (1.6-2.6); Phosphorus 3.2 mg/dL (2.3-4.7); Potassium 3.3 mmol/L (3.5-5.1); Sodium 141 mmol/L (136-145)
[2021-09-23] MEDS: Aspirin 81 mg Enteric Coated Tablet PO SCH (08:09)
[2021-09-23] MEDS: Carvedilol 3.125 MG TAB PO SCH ×2 (08:09→17:03)
[2021-09-23] MEDS: Multivit, Therapeutic 1 TAB PO SCH (08:09)
[2021-09-23] MEDS ORDERED: Electrolyte Replacement Protocol 1 EACH FS SCH (10:30)
[2021-09-23] MEDS ORDERED: Magnesium 2 GM/50 ML(in water) 2 GM in Premix Bag 1 BAG IVPB SCH (12:30)
[2021-09-23] MEDS ORDERED: Potassium Chloride 20 MEQ TAB PO SCH ×2 (12:30→17:00)
[2021-09-23] MEDS: HumaLOG 300 UNITS/3 ML VIAL SC PRN ×2 (12:48→17:05)
[2021-09-23] MEDS: cefTRIAXone\\ROCEPHIN 1 GM in Sodium Chloride 0.9% 100 ML IVPB SCH (17:03)
[2021-09-23] MEDS: OLANZapine 2.5 MG TAB PO SCH (20:38)
[2021-09-23] MEDS: Folic Acid 1 MG TAB PO SCH (20:38)
[2021-09-24] MEDS: Acetaminophen 325 MG TAB PO PRN ×2 (04:55→22:38)
[2021-09-24] MEDS ORDERED: Sterile Water 20 ML VIAL FS PRN (06:36)
[2021-09-24 06:43] LABS: Anion Gap 11 mmol/L (10-20); BUN (Urea Nitrogen) 15 mg/dL (9.8-20.1); Calc. Creatinine Clearance 61 mL/min (70-130); Calcium 9.1 mg/dL (7.8-10.44); Carbon Dioxide 28 mmol/L (23-31); Chloride 108 mmol/L (98-107); Estimated GFR 94; Glucose 144 mg/dL (83-110); Magnesium 1.9 mg/dL (1.6-2.6); Phosphorus 3.5 mg/dL (2.3-4.7); Potassium 4.3 mmol/L (3.5-5.1); Sodium 143 mmol/L (136-145)
[2021-09-24] MEDS ORDERED: OLANZapine 10 MG VIAL IM SCH (06:45)
[2021-09-24 07:24] LABS: Hemoglobin 11.7 g/dL (12.0-16.0); Mean Corpuscular Volume 79.9 fL (78.0-98.0); Mean Platelet Volume 9.7 fL (7.4-10.4); Platelet Count 75 thou/uL (130-400); Red Blood Cell (RBC) Count 4.87 mill/uL (4.20-5.40); White Blood Cell (WBC) Count 6.2 thou/uL (4.8-10.8)
[2021-09-24] MEDS: Multivit, Therapeutic 1 TAB PO SCH (08:26)
[2021-09-24] MEDS: Aspirin 81 mg Enteric Coated Tablet PO SCH (08:26)
[2021-09-24] MEDS: Carvedilol 3.125 MG TAB PO SCH ×2 (08:26→17:23)
[2021-09-24] MEDS ORDERED: Magnesium 2 GM/50 ML(in water) 2 GM in Premix Bag 1 BAG IVPB SCH (09:00)
[2021-09-24 09:09] LABS: Eosinophils 30 % (0-10); Hypochromia SLIGHT = 6-15 cells (100X) (0-5/hpf); Lymphocytes 40 % (21-51); MDiff Complete? YES; Microcytosis SLIGHT = 6-15 cells (100X) (0-5/hpf); Monocytes 2 % (0-10); Neutrophil 28 % (42-75); Platelet Morphology Comment Appears Decreased; Polychromasia SLIGHT = 2-3 cells (100X) (0-2/hpf); Target Cells SLIGHT = 2-5 cells (100X) (0-1/hpf)
[2021-09-24] MEDS: cefTRIAXone\\ROCEPHIN 1 GM in Sodium Chloride 0.9% 100 ML IVPB SCH (17:19)
[2021-09-24] MEDS: HumaLOG 300 UNITS/3 ML VIAL SC PRN (17:19)
[2021-09-24] MEDS: Folic Acid 1 MG TAB PO SCH (20:44)
[2021-09-24] MEDS: OLANZapine 2.5 MG TAB PO SCH (20:44)
[2021-09-24] MEDS: pyridOXINE 50 MG (B6) TAB PO SCH (20:44)
[2021-09-24] MEDS: Cyanocobalamin (Vitamin B-12) 1,000 MCG TAB PO SCH (20:44)
[2021-09-25] MEDS: Multivit, Therapeutic 1 TAB PO SCH (08:08)
[2021-09-25] MEDS: Carvedilol 3.125 MG TAB PO SCH ×3 (08:08→22:05)
[2021-09-25] MEDS: OLANZapine 2.5 MG TAB PO SCH ×2 (08:08→22:04)
[2021-09-25] MEDS: Aspirin 81 mg Enteric Coated Tablet PO SCH (08:08)
[2021-09-25] MEDS ORDERED: cloNIDine 0.1 MG TAB PO PRN (12:17)
[2021-09-25] MEDS: HumaLOG 300 UNITS/3 ML VIAL SC PRN (12:43)
[2021-09-25] MEDS: Lorazepam 1 MG TAB PO PRN ×2 (12:44→22:04)
[2021-09-25] MEDS: cefTRIAXone\\ROCEPHIN 1 GM in Sodium Chloride 0.9% 100 ML IVPB SCH (17:23)
[2021-09-25] MEDS: Cyanocobalamin (Vitamin B-12) 1,000 MCG TAB PO SCH (22:04)
[2021-09-25] MEDS: pyridOXINE 50 MG (B6) TAB PO SCH (22:04)
[2021-09-25] MEDS: Folic Acid 1 MG TAB PO SCH (22:04)
[2021-09-26] MEDS: metFORMIN 500 MG TAB PO SCH ×3 (08:37→16:38)
[2021-09-26] MEDS: OLANZapine 2.5 MG TAB PO SCH ×2 (08:37→20:47)
[2021-09-26] MEDS: Multivit, Therapeutic 1 TAB PO SCH (08:38)
[2021-09-26] MEDS: Aspirin 81 mg Enteric Coated Tablet PO SCH (08:38)
[2021-09-26] MEDS: Carvedilol 3.125 MG TAB PO SCH ×4 (08:38→20:47)
[2021-09-26] MEDS: cefTRIAXone\\ROCEPHIN 1 GM in Sodium Chloride 0.9% 100 ML IVPB SCH (17:04)
[2021-09-26] MEDS: Folic Acid 1 MG TAB PO SCH (20:47)
[2021-09-26] MEDS: Cyanocobalamin (Vitamin B-12) 1,000 MCG TAB PO SCH (20:47)
[2021-09-26] MEDS: pyridOXINE 50 MG (B6) TAB PO SCH (20:47)
[2021-09-27] MEDS: OLANZapine 2.5 MG TAB PO SCH ×2 (08:35→21:48)
[2021-09-27] MEDS: Aspirin 81 mg Enteric Coated Tablet PO SCH (08:35)
[2021-09-27] MEDS: Multivit, Therapeutic 1 TAB PO SCH (08:35)
[2021-09-27] MEDS: metFORMIN 500 MG TAB PO SCH ×2 (08:35→17:12)
[2021-09-27] MEDS: Carvedilol 3.125 MG TAB PO SCH ×3 (08:35→21:49)
[2021-09-27] MEDS: cefTRIAXone\\ROCEPHIN 1 GM in Sodium Chloride 0.9% 100 ML IVPB SCH (17:12)
[2021-09-27] MEDS: Folic Acid 1 MG TAB PO SCH (21:48)
[2021-09-27] MEDS: pyridOXINE 50 MG (B6) TAB PO SCH (21:48)
[2021-09-27] MEDS: Cyanocobalamin (Vitamin B-12) 1,000 MCG TAB PO SCH (21:48)
[2021-09-27] MEDS: Acetaminophen 325 MG TAB PO PRN (21:50)
[2021-09-27] MEDS: Guaifenesin DM 100-10/5 ML UDCUP PO PRN (22:54)
[2021-09-28] MEDS: Multivit, Therapeutic 1 TAB PO SCH (08:41)
[2021-09-28] MEDS: Aspirin 81 mg Enteric Coated Tablet PO SCH (08:41)
[2021-09-28] MEDS: metFORMIN 500 MG TAB PO SCH ×2 (08:41→17:53)
[2021-09-28] MEDS: Carvedilol 3.125 MG TAB PO SCH ×3 (08:41→20:30)
[2021-09-28] MEDS: OLANZapine 2.5 MG TAB PO SCH ×2 (08:41→20:29)
[2021-09-28] MEDS: HumaLOG 300 UNITS/3 ML VIAL SC PRN (12:49)
[2021-09-28] MEDS: Acetaminophen 325 MG TAB PO PRN (20:29)
[2021-09-28] MEDS: Folic Acid 1 MG TAB PO SCH (20:29)
[2021-09-28] MEDS: Cyanocobalamin (Vitamin B-12) 1,000 MCG TAB PO SCH (20:29)
[2021-09-28] MEDS: pyridOXINE 50 MG (B6) TAB PO SCH (20:29)
[2021-09-28] MEDS: Lorazepam 1 MG TAB PO PRN ×2 (20:34→22:10)
[2021-09-29] MEDS: OLANZapine 2.5 MG TAB PO SCH ×2 (09:04→20:40)
[2021-09-29] MEDS: Multivit, Therapeutic 1 TAB PO SCH (09:04)
[2021-09-29] MEDS: metFORMIN 500 MG TAB PO SCH ×2 (09:04→16:12)
[2021-09-29] MEDS: Aspirin 81 mg Enteric Coated Tablet PO SCH (09:04)
[2021-09-29] MEDS: Carvedilol 3.125 MG TAB PO SCH ×3 (09:04→20:40)
[2021-09-29] MEDS: HumaLOG 300 UNITS/3 ML VIAL SC PRN ×2 (13:11→17:57)
[2021-09-29] MEDS: Cyanocobalamin (Vitamin B-12) 1,000 MCG TAB PO SCH (20:40)
[2021-09-29] MEDS: pyridOXINE 50 MG (B6) TAB PO SCH (20:40)
[2021-09-29] MEDS: Folic Acid 1 MG TAB PO SCH (20:40)
[2021-09-30] MEDS: Lorazepam 1 MG TAB PO PRN (00:45)
[2021-09-30] MEDS: Guaifenesin DM 100-10/5 ML UDCUP PO PRN (00:49)
[2021-09-30] MEDS: Carvedilol 3.125 MG TAB PO SCH ×3 (08:43→20:20)
[2021-09-30] MEDS: Aspirin 81 mg Enteric Coated Tablet PO SCH (08:43)
[2021-09-30] MEDS: metFORMIN 500 MG TAB PO SCH ×2 (08:43→16:44)
[2021-09-30] MEDS: OLANZapine 2.5 MG TAB PO SCH ×2 (08:43→20:20)
[2021-09-30] MEDS: Multivit, Therapeutic 1 TAB PO SCH (08:43)
[2021-09-30] MEDS: HumaLOG 300 UNITS/3 ML VIAL SC PRN (14:01)
[2021-09-30] MEDS: Cyanocobalamin (Vitamin B-12) 1,000 MCG TAB PO SCH (20:20)
[2021-09-30] MEDS: pyridOXINE 50 MG (B6) TAB PO SCH (20:21)
[2021-09-30] MEDS: Folic Acid 1 MG TAB PO SCH (20:21)
[2021-10-01] MEDS: Acetaminophen 325 MG TAB PO PRN ×2 (04:52→20:41)
[2021-10-01] MEDS: Multivit, Therapeutic 1 TAB PO SCH (08:28)
[2021-10-01] MEDS: metFORMIN 500 MG TAB PO SCH ×2 (08:28→16:28)
[2021-10-01] MEDS: Carvedilol 3.125 MG TAB PO SCH ×3 (08:28→20:40)
[2021-10-01] MEDS: OLANZapine 2.5 MG TAB PO SCH ×2 (08:28→20:40)
[2021-10-01] MEDS: Aspirin 81 mg Enteric Coated Tablet PO SCH (08:28)
[2021-10-01] MEDS: Lorazepam 1 MG TAB PO PRN (20:40)
[2021-10-01] MEDS: pyridOXINE 50 MG (B6) TAB PO SCH (20:41)
[2021-10-01] MEDS: Cyanocobalamin (Vitamin B-12) 1,000 MCG TAB PO SCH (20:41)
[2021-10-01] MEDS: Folic Acid 1 MG TAB PO SCH (20:41)
[2021-10-02 06:27] LABS: Anion Gap 16 mmol/L (10-20); BUN (Urea Nitrogen) 24 mg/dL (9.8-20.1); Calc. Creatinine Clearance 56 mL/min (70-130); Calcium 9.4 mg/dL (7.8-10.44); Carbon Dioxide 22 mmol/L (23-31); Chloride 107 mmol/L (98-107); Estimated GFR 91; Glucose 150 mg/dL (83-110); Magnesium 1.7 mg/dL (1.6-2.6); Sodium 141 mmol/L (136-145)
[2021-10-02 06:32] LABS: #Basophils 0.1 thou/uL (0.0-0.2); #Eosinphils 1.3 thou/uL (0.0-0.7); #Monocytes 0.5 thou/uL (0.11-0.59); #Neutrophils 2.9 thou/uL (1.40-6.50); %Basophils 0.8 % (0.0-1.0); %Eosinophils 19.2 % (0.0-10.0); %Lymphocytes 30.1 % (21.0-51.0); %Monocytes 7.3 % (0.0-10.0); %Neutrophils 42.6 % (42.0-75.0); Elliptocytes SLIGHT = 2-5 cells (100X) (0-1/hpf); Hemoglobin 11.3 g/dL (12.0-16.0); Hypochromia SLIGHT = 6-15 cells (100X) (0-5/hpf); MDiff Complete? YES; Mean Corpuscular HGB CONC 31.3 g/dL (32.0-36.0); Mean Corpuscular Hemoglobin 24.9 pg (27.0-31.0); Mean Corpuscular Volume 79.5 fL (78.0-98.0); Mean Platelet Volume 12.6 fL (7.4-10.4); Platelet Count 87 thou/uL (130-400); Platelet Morphology Comment Appears Decreased; Polychromasia SLIGHT = 2-3 cells (100X) (0-2/hpf); RBC Distribution Width 13.2 % (11.5-14.5); Red Blood Cell (RBC) Count 4.55 mill/uL (4.20-5.40); Target Cells SLIGHT = 2-5 cells (100X) (0-1/hpf); White Blood Cell (WBC) Count 6.8 thou/uL (4.8-10.8)
[2021-10-02] MEDS: Multivit, Therapeutic 1 TAB PO SCH (08:01)
[2021-10-02] MEDS: Carvedilol 3.125 MG TAB PO SCH ×3 (08:01→20:31)
[2021-10-02] MEDS: OLANZapine 2.5 MG TAB PO SCH ×2 (08:01→20:31)
[2021-10-02] MEDS: metFORMIN 500 MG TAB PO SCH ×2 (08:01→16:23)
[2021-10-02] MEDS: Aspirin 81 mg Enteric Coated Tablet PO SCH (08:01)
[2021-10-02] MEDS ORDERED: Magnesium 2 GM/50 ML(in water) 2 GM in Premix Bag 1 BAG IVPB SCH (09:00)
[2021-10-02] MEDS: Magnesium Oxide 400 MG TAB PO SCH ×2 (09:57→20:31)
[2021-10-02] MEDS: Lorazepam 1 MG TAB PO PRN (16:23)
[2021-10-02] MEDS: Folic Acid 1 MG TAB PO SCH (20:31)
[2021-10-02] MEDS: pyridOXINE 50 MG (B6) TAB PO SCH (20:31)
[2021-10-02] MEDS: Guaifenesin DM 100-10/5 ML UDCUP PO PRN (20:32)
[2021-10-02] MEDS: Cyanocobalamin (Vitamin B-12) 1,000 MCG TAB PO SCH (20:32)
[2021-10-03] MEDS: metFORMIN 500 MG TAB PO SCH ×2 (08:20→17:23)
[2021-10-03] MEDS: Multivit, Therapeutic 1 TAB PO SCH (08:20)
[2021-10-03] MEDS: Carvedilol 3.125 MG TAB PO SCH ×3 (08:20→22:55)
[2021-10-03] MEDS: Magnesium Oxide 400 MG TAB PO SCH ×2 (08:20→22:56)
[2021-10-03] MEDS: Aspirin 81 mg Enteric Coated Tablet PO SCH (08:20)
[2021-10-03] MEDS: OLANZapine 2.5 MG TAB PO SCH ×2 (08:24→22:56)
[2021-10-03] MEDS: Folic Acid 1 MG TAB PO SCH (22:55)
[2021-10-03] MEDS: Cyanocobalamin (Vitamin B-12) 1,000 MCG TAB PO SCH (22:55)
[2021-10-03] MEDS: pyridOXINE 50 MG (B6) TAB PO SCH (22:56)
[2021-10-04] MEDS: metFORMIN 500 MG TAB PO SCH ×2 (09:07→17:08)
[2021-10-04] MEDS: Carvedilol 3.125 MG TAB PO SCH ×3 (09:07→21:57)
[2021-10-04] MEDS: Magnesium Oxide 400 MG TAB PO SCH ×2 (09:07→21:57)
[2021-10-04] MEDS: Aspirin 81 mg Enteric Coated Tablet PO SCH (09:07)
[2021-10-04] MEDS: Multivit, Therapeutic 1 TAB PO SCH (09:07)
[2021-10-04] MEDS: OLANZapine 2.5 MG TAB PO SCH ×2 (09:07→21:57)
[2021-10-04] MEDS: Acetaminophen 325 MG TAB PO PRN ×2 (09:12→15:24)
[2021-10-04] MEDS: Guaifenesin DM 100-10/5 ML UDCUP PO PRN ×2 (12:08→17:08)
[2021-10-04] MEDS: HumaLOG 300 UNITS/3 ML VIAL SC PRN (12:08)
[2021-10-04] MEDS: Cyanocobalamin (Vitamin B-12) 1,000 MCG TAB PO SCH (21:57)
[2021-10-04] MEDS: pyridOXINE 50 MG (B6) TAB PO SCH (21:57)
[2021-10-04] MEDS: Folic Acid 1 MG TAB PO SCH (21:57)
[2021-10-05] MEDS: Acetaminophen 325 MG TAB PO PRN ×2 (02:35→09:10)
[2021-10-05] MEDS: Guaifenesin DM 100-10/5 ML UDCUP PO PRN (02:35)
[2021-10-05] MEDS ORDERED: Senokot S 8.6-50 MG TAB PO PRN (08:42)
[2021-10-05] MEDS ORDERED: Loperamide HCl 2 MG CAP PO PRN (08:42)
[2021-10-05] MEDS: GUAIFENESIN SF SOLN 200 MG/10 ML UDCUP PO PRN ×2 (09:09→16:26)
[2021-10-05] MEDS: metFORMIN 500 MG TAB PO SCH ×2 (09:12→16:26)
[2021-10-05] MEDS: Multivit, Therapeutic 1 TAB PO SCH (09:12)
[2021-10-05] MEDS: Aspirin 81 mg Enteric Coated Tablet PO SCH (09:12)
[2021-10-05] MEDS: Carvedilol 3.125 MG TAB PO SCH ×3 (09:13→20:16)
[2021-10-05] MEDS: Magnesium Oxide 400 MG TAB PO SCH ×2 (09:13→20:16)
[2021-10-05] MEDS: OLANZapine 2.5 MG TAB PO SCH ×2 (09:13→20:16)
[2021-10-05] MEDS: Folic Acid 1 MG TAB PO SCH (20:16)
[2021-10-05] MEDS: pyridOXINE 50 MG (B6) TAB PO SCH (20:16)
[2021-10-05] MEDS: Cyanocobalamin (Vitamin B-12) 1,000 MCG TAB PO SCH (20:16)
[2021-10-06] MEDS: GUAIFENESIN SF SOLN 200 MG/10 ML UDCUP PO PRN (00:11)
[2021-10-06] MEDS: Magnesium Oxide 400 MG TAB PO SCH ×2 (09:18→20:33)
[2021-10-06] MEDS: metFORMIN 500 MG TAB PO SCH ×2 (09:18→17:16)
[2021-10-06] MEDS: OLANZapine 2.5 MG TAB PO SCH ×2 (09:19→20:32)
[2021-10-06] MEDS: Multivit, Therapeutic 1 TAB PO SCH (09:19)
[2021-10-06] MEDS: Aspirin 81 mg Enteric Coated Tablet PO SCH (09:19)
[2021-10-06] MEDS: Carvedilol 3.125 MG TAB PO SCH ×3 (09:19→20:32)
[2021-10-06] MEDS: HumaLOG 300 UNITS/3 ML VIAL SC PRN (17:18)
[2021-10-06] MEDS: Folic Acid 1 MG TAB PO SCH (20:32)
[2021-10-06] MEDS: pyridOXINE 50 MG (B6) TAB PO SCH (20:32)
[2021-10-06] MEDS: Cyanocobalamin (Vitamin B-12) 1,000 MCG TAB PO SCH (20:33)
[2021-10-07] MEDS: Magnesium Oxide 400 MG TAB PO SCH ×2 (08:15→20:29)
[2021-10-07] MEDS: Aspirin 81 mg Enteric Coated Tablet PO SCH (08:16)
[2021-10-07] MEDS: Carvedilol 3.125 MG TAB PO SCH ×3 (08:16→20:29)
[2021-10-07] MEDS: Multivit, Therapeutic 1 TAB PO SCH (08:16)
[2021-10-07] MEDS: metFORMIN 500 MG TAB PO SCH ×2 (08:16→17:02)
[2021-10-07] MEDS: OLANZapine 2.5 MG TAB PO SCH ×2 (08:16→20:30)
[2021-10-07] MEDS: HumaLOG 300 UNITS/3 ML VIAL SC PRN (17:02)
[2021-10-07] MEDS: Cyanocobalamin (Vitamin B-12) 1,000 MCG TAB PO SCH (20:29)
[2021-10-07] MEDS: Folic Acid 1 MG TAB PO SCH (20:29)
[2021-10-07] MEDS: pyridOXINE 50 MG (B6) TAB PO SCH (20:30)
[2021-10-08] MEDS: Magnesium Oxide 400 MG TAB PO SCH ×2 (09:19→20:57)
[2021-10-08] MEDS: Multivit, Therapeutic 1 TAB PO SCH (09:19)
[2021-10-08] MEDS: Carvedilol 3.125 MG TAB PO SCH ×3 (09:19→20:57)
[2021-10-08] MEDS: Guaifenesin DM 100-10/5 ML UDCUP PO PRN (09:19)
[2021-10-08] MEDS: metFORMIN 500 MG TAB PO SCH ×2 (09:19→17:10)
[2021-10-08] MEDS: Aspirin 81 mg Enteric Coated Tablet PO SCH (09:19)
[2021-10-08] MEDS ORDERED: Benzonatate 100 MG CAP PO SCH (10:00)
[2021-10-08] MEDS: OLANZapine 2.5 MG TAB PO SCH ×2 (11:46→20:58)
[2021-10-08] MEDS: HumaLOG 300 UNITS/3 ML VIAL SC PRN ×2 (11:57→17:10)
[2021-10-08] MEDS ORDERED: Benzonatate 100 MG CAP PO PRN (15:00)
[2021-10-08] MEDS: Cyanocobalamin (Vitamin B-12) 1,000 MCG TAB PO SCH (20:57)
[2021-10-08] MEDS: Folic Acid 1 MG TAB PO SCH (20:57)
[2021-10-08] MEDS: pyridOXINE 50 MG (B6) TAB PO SCH (20:58)
[2021-10-09] MEDS: Acetaminophen 325 MG TAB PO PRN ×2 (01:10→21:12)
[2021-10-09] MEDS: Magnesium Oxide 400 MG TAB PO SCH ×2 (09:00→20:26)
[2021-10-09] MEDS: metFORMIN 500 MG TAB PO SCH ×2 (09:00→17:12)
[2021-10-09] MEDS: Multivit, Therapeutic 1 TAB PO SCH (09:00)
[2021-10-09] MEDS: OLANZapine 2.5 MG TAB PO SCH ×2 (09:00→20:26)
[2021-10-09] MEDS: Carvedilol 3.125 MG TAB PO SCH ×3 (09:00→20:26)
[2021-10-09] MEDS: Aspirin 81 mg Enteric Coated Tablet PO SCH (09:00)
[2021-10-09] MEDS: Cyanocobalamin (Vitamin B-12) 1,000 MCG TAB PO SCH (20:26)
[2021-10-09] MEDS: Folic Acid 1 MG TAB PO SCH (20:26)
[2021-10-09] MEDS: pyridOXINE 50 MG (B6) TAB PO SCH (20:26)
[2021-10-10] MEDS: Multivit, Therapeutic 1 TAB PO SCH (11:19)
[2021-10-10] MEDS: metFORMIN 500 MG TAB PO SCH ×2 (11:19→16:10)
[2021-10-10] MEDS: Carvedilol 3.125 MG TAB PO SCH ×3 (11:19→20:13)
[2021-10-10] MEDS: Magnesium Oxide 400 MG TAB PO SCH ×2 (11:19→20:13)
[2021-10-10] MEDS: Aspirin 81 mg Enteric Coated Tablet PO SCH (11:19)
[2021-10-10] MEDS: OLANZapine 2.5 MG TAB PO SCH ×2 (11:20→20:13)
[2021-10-10] MEDS: Folic Acid 1 MG TAB PO SCH (20:13)
[2021-10-10] MEDS: Cyanocobalamin (Vitamin B-12) 1,000 MCG TAB PO SCH (20:13)
[2021-10-10] MEDS: pyridOXINE 50 MG (B6) TAB PO SCH (20:13)
[2021-10-11] MEDS: Magnesium Oxide 400 MG TAB PO SCH ×2 (08:53→20:31)
[2021-10-11] MEDS: metFORMIN 500 MG TAB PO SCH ×2 (08:53→16:27)
[2021-10-11] MEDS: Multivit, Therapeutic 1 TAB PO SCH (08:53)
[2021-10-11] MEDS: OLANZapine 2.5 MG TAB PO SCH ×2 (08:53→20:31)
[2021-10-11] MEDS: Aspirin 81 mg Enteric Coated Tablet PO SCH (08:53)
[2021-10-11] MEDS: Carvedilol 3.125 MG TAB PO SCH ×3 (08:53→20:32)
[2021-10-11] MEDS: pyridOXINE 50 MG (B6) TAB PO SCH (20:31)
[2021-10-11] MEDS: Folic Acid 1 MG TAB PO SCH (20:31)
[2021-10-11] MEDS: Cyanocobalamin (Vitamin B-12) 1,000 MCG TAB PO SCH (20:32)
[2021-10-12] MEDS: OLANZapine 2.5 MG TAB PO SCH ×2 (08:44→19:56)
[2021-10-12] MEDS: metFORMIN 500 MG TAB PO SCH ×2 (08:44→16:16)
[2021-10-12] MEDS: Magnesium Oxide 400 MG TAB PO SCH ×2 (08:44→19:57)
[2021-10-12] MEDS: Aspirin 81 mg Enteric Coated Tablet PO SCH (08:44)
[2021-10-12] MEDS: Multivit, Therapeutic 1 TAB PO SCH (08:44)
[2021-10-12] MEDS: Carvedilol 3.125 MG TAB PO SCH ×3 (08:44→19:57)
[2021-10-12] MEDS: Acetaminophen 325 MG TAB PO PRN (16:15)
[2021-10-12] MEDS: HumaLOG 300 UNITS/3 ML VIAL SC PRN (16:23)
[2021-10-12] MEDS: pyridOXINE 50 MG (B6) TAB PO SCH (19:56)
[2021-10-12] MEDS: Folic Acid 1 MG TAB PO SCH (19:56)
[2021-10-12] MEDS: Cyanocobalamin (Vitamin B-12) 1,000 MCG TAB PO SCH (19:57)
[2021-10-12] MEDS ORDERED: Atorvastatin Calcium 40 MG TAB PO SCH (21:00)
[2021-10-12] MEDS ORDERED: Donepezil HCl 5 MG TAB PO SCH (21:00)
[2021-10-12] MEDS ORDERED: metFORMIN XR 500 MG TAB PO SCH (21:00)
[2021-10-13 08:34] VITALS: BP 169/77; TEMP 97.7
[2021-10-13] MEDS: Multivit, Therapeutic 1 TAB PO SCH (08:35)
[2021-10-13] MEDS: Magnesium Oxide 400 MG TAB PO SCH (08:35)
[2021-10-13] MEDS: OLANZapine 2.5 MG TAB PO SCH (08:35)
[2021-10-13] MEDS: Carvedilol 3.125 MG TAB PO SCH (08:35)
[2021-10-13] MEDS: Aspirin 81 mg Enteric Coated Tablet PO SCH (08:36)
[2021-10-13] MEDS ORDERED: metFORMIN XR 500 MG TAB PO SCH (09:00)
[2021-10-13] MEDS: HumaLOG 300 UNITS/3 ML VIAL SC PRN (11:32)
== END 2021-10-13 13:21 | DRG 922 ==
LOC: ERS 12:30 → ERHOLD 17:57 → 2NO 21:55 → T4-A 09-20 15:33
PROVIDERS: ADMIT Internal Medicine; ATTEND Internal Medicine
DX: T67.01XA Heatstroke and sunstroke, initial encounter (principal); Z66 Do not resuscitate; G93.41 Metabolic encephalopathy; F03.91 Unspecified dementia, unspecified severity, with behavioral disturbance; N39.0 Urinary tract infection, site not specified; E86.0 Dehydration; E78.2 Mixed hyperlipidemia; I10 Essential (primary) hypertension; E11.9 Type 2 diabetes mellitus without complications; E87.6 Hypokalemia; E78.5 Hyperlipidemia, unspecified; D53.9 Nutritional anemia, unspecified; F32.A Depression, unspecified; D69.6 Thrombocytopenia, unspecified; E83.42 Hypomagnesemia; Z28.21 Immunization not carried out because of patient refusal; Z98.890 Other specified postprocedural states; Z79.899 Other long term (current) drug therapy; Z79.82 Long term (current) use of aspirin; Z79.84 Long term (current) use of oral hypoglycemic drugs; X32.XXXA Exposure to sunlight, initial encounter; Y92.89 Other specified places as the place of occurrence of the external cause
CPT/HCPCS: 36415; 36416; 70450; 70551; 71045; 80048; 80053; 80306; 80307; 81003; 81015; 83735; 84100; 84484; 85025; 87086; 93005; 96372; J0696; J1630; J1815; J2358; J3475; J3490; J7050